=== PATIENT | male | born 1985 | race American Indian/Alaskan Native ===

== ENCOUNTER 2017-08-12 15:48 | Inpatient (IN) | payer OTHER ==
[2017-08-12] MEDS ORDERED: ATROVENT IH ONE ×2 (15:55→16:18)
[2017-08-12] MEDS ORDERED: PROVENTIL IH ONE ×4 (15:55→20:35)
[2017-08-12] MEDS: PROVENTIL IH ONE ×2 (16:00→17:04)
[2017-08-12] MEDS ORDERED: MAGNESIUM SULFATE 2GM/50ML 2 GM/50 ML BAG IV ONE (16:15)
[2017-08-12 16:43] LABS: Basophils % (Auto) 0.2 % (0.0-1.8); Eosinophils % (Auto) 0.7 % (0.0-4.3); Hematocrit 44.8 % (35.5-45.6); Hemoglobin 14.9 gm/dl (11.8-15.2); Mean Corpuscular HGB Conc 33 % (32-34); Mean Corpuscular Hemoglobin 31 pg (28-32); Mean Corpuscular Volume 92 fl (84-94); Platelet Count 192 K/mm3 (140-440); Red Blood Count 4.84 M/mm3 (3.65-5.03); Red Cell Distribution Width 13.8 % (13.2-15.2)
[2017-08-12] MEDS ORDERED: ATIVAN IV ONE (16:52)
--- NOTE | 2017-08-12 16:53 | Emergency Department Report ---
ED Asthma HPI - General Chief Complaint: Adult Asthma Stated Complaint: ASTHMA Time Seen by Provider: 08/12/17 16:13 Source: patient, family Mode of arrival: Ambulatory Limitations: No Limitations - History of Present Illness Initial Comments: 32-year-old male with past medical history of asthma and no intubations has presented to the ED complaining of asthma exacerbation. Patient states over the last day he has had worsening shortness of breath and difficulty breathing and wheezing. He states he ran out of his inhaler. Patient denies: fevers/ chills, cough, chest pain, abdominal pain, lower extremity edema, history of DVT /PE. MD Complaint: "asthma attack" -: Sudden Asthma History: childhood onset Severity: moderate Context: ran out of meds Associated Symptoms: denies: productive cough, dry cough, fever, chest pain, hemoptysis, leg edema, syncope Treatments Prior to Arrival: inhaled bronchodilator - Related Data Allergies Allergy/AdvReac Type Severity Reaction Status Date / Time No Known Allergies Allergy Unverified 08/12/17 16:00 ED Review of Systems ROS: Stated complaint: ASTHMA Other details as noted in HPI Constitutional: denies: chills, fever Eyes: denies: eye pain, eye discharge, vision change ENT: denies: ear pain, throat pain Respiratory: shortness of breath, SOB with exertion, SOB at rest, wheezing. denies: cough, orthopnea Cardiovascular: denies: chest pain, palpitations Endocrine: no symptoms reported Gastrointestinal: denies: abdominal pain, nausea, diarrhea Genitourinary: denies: urgency, dysuria Musculoskeletal: denies: back pain, joint swelling, arthralgia Skin: denies: rash, lesions Neurological: denies: headache, weakness, paresthesias Psychiatric: denies: anxiety, depression Hematological/Lymphatic: denies: easy bleeding, easy bruising ED Past Medical Hx - Past Medical History Previous Medical History?: Yes Hx Hypertension: No Hx CVA: No Hx Heart Attack/AMI: No Hx Congestive Heart Failure: No Hx Diabetes: No Hx Deep Vein Thrombosis: No Hx Pulmonary Embolism: No Hx GERD: No Hx Liver Disease: No Hx Renal Disease: No Hx of Cancer: No Hx Sickle Cell Disease: No Hx Arthritis: No Hx Headaches / Migraines: No Hx Seizures: No Hx Kidney Stones: No Hx Psychiatric Treatment: No Hx Asthma: Yes Hx COPD: No Hx Tuberculosis: No Hx Dementia: No Hx HIV: No - Surgical History Past Surgical History?: No Hx Coronary Stent: No Hx Open Heart Surgery: No Hx Pacemaker: No Hx Internal Defibrillator: No Hx Cholecystectomy: No Hx Appendectomy: No Hx Breast Surgery: No - Social History Smoking Status: Never Smoker Substance Use Type: None ED Physical Exam - General Limitations: No Limitations General appearance: alert, anxious, in distress - Head Head exam: Present: atraumatic, normocephalic - Eye Eye exam: Present: normal appearance, PERRL, EOMI - ENT ENT exam: Present: normal orophraynx, mucous membranes moist - Neck Neck exam: Present: normal inspection - Respiratory Respiratory exam: Present: respiratory distress (severe, pt not moving air ), accessory muscle use, decreased breath sounds, prolonged expiratory. Absent: wheezes, rales, rhonchi, stridor - Cardiovascular Cardiovascular Exam: Present: regular rate, normal rhythm. Absent: systolic murmur, diastolic murmur, rubs, gallop - GI/Abdominal GI/Abdominal exam: Present: soft, normal bowel sounds. Absent: distended, tenderness, guarding - Rectal Rectal exam: Present: deferred - Extremities Exam Extremities exam: Present: normal inspection - Back Exam Back exam: Present: normal inspection - Neurological Exam Neurological exam: Present: alert, oriented X3 - Psychiatric Psychiatric exam: Present: anxious - Skin Skin exam: Present: warm, dry, intact, normal color. Absent: rash ED Course Vital Signs 08/12/17 08/12/17 08/12/17 15:53 16:00 16:17 Temperature 97.4 F L Pulse Rate 129 H 119 H Pulse Rate [ 118 H Anterior Bilateral Throughout] Respiratory 18 22 Rate Respiratory 28 H Rate [Anterior Bilateral Throughout] Blood Pressure 120/78 Blood Pressure 120/78 [Right] O2 Sat by Pulse 84 98 Oximetry 08/12/17 08/12/17 08/12/17 16:25 16:30 16:46 Temperature Pulse Rate 118 H 112 H 114 H Pulse Rate [ Anterior Bilateral Throughout] Respiratory 30 H 31 H 25 H Rate Respiratory Rate [Anterior Bilateral Throughout] Blood Pressure 115/82 115/82 122/92 Blood Pressure [Right] O2 Sat by Pulse 100 100 100 Oximetry 08/12/17 08/12/17 08/12/17 17:00 17:02 17:04 Temperature Pulse Rate 127 H Pulse Rate [ 126 H 125 H Anterior Bilateral Throughout] Respiratory 37 H Rate Respiratory 26 H 28 H Rate [Anterior Bilateral Throughout] Blood Pressure 122/92 Blood Pressure [Right] O2 Sat by Pulse 95 Oximetry 08/12/17 08/12/17 08/12/17 17:16 17:30 17:46 Temperature Pulse Rate 136 H 89 Pulse Rate [ Anterior Bilateral Throughout] Respiratory 29 H 20 Rate Respiratory Rate [Anterior Bilateral Throughout] Blood Pressure 122/92 122/92 126/69 Blood Pressure [Right] O2 Sat by Pulse 100 100 100 Oximetry 08/12/17 08/12/17 08/12/17 18:00 18:15 18:18 Temperature Pulse Rate 136 H 122 H 113 H Pulse Rate [ Anterior Bilateral Throughout] Respiratory 8 L 18 Rate Respiratory Rate [Anterior Bilateral Throughout] Blood Pressure 149/82 138/85 164/131 Blood Pressure [Right] O2 Sat by Pulse 100 100 100 Oximetry 08/12/17 08/12/17 18:30 19:13 Temperature Pulse Rate 119 H Pulse Rate [ Anterior Bilateral Throughout] Respiratory 16 32 H Rate Respiratory Rate [Anterior Bilateral Throughout] Blood Pressure 147/87 Blood Pressure [Right] O2 Sat by Pulse 100 98 Oximetry - Reevaluation(s) Reevaluation #1: 08/12/17 16:53 Patient states he thinks he can breathe better on his own without BiPAP however he still has tachycardia, tachypnea and increased work of breathing. My suspicion is that he is anxious on the BiPAP therefore I have ordered Ativan. Reevaluation #2: 08/12/17 17:28 Patient's work of breathing worsened despite being on BiPAP and 2 continuous albuterol treatments and magnesium IV. Decision was made to intubate. Patient agreed. Patient tolerated intubation well. 08/12/17 18:45 Reevaluation #3: 08/12/17 18:46 Dr. Sherwood control systems drafting officer recommends ketamine drip. Reevaluation #4: 08/12/17 19:05 Dr. Sherwood states he will place ketamine orders in himself - Intubation Time Out Performed: Yes Sedative: Etomidate Paralytic: Succinylcholine Laryngoscope: Nhan Size: 4 ET Tube Size: 8 Tube Secured Depth (cm): 24 Tube Secured Location: teeth Tube Placement Confirmation: visualized tube passing t, equal breath sounds bilat, no breath sounds over epi Patient Tolerated Procedure: well Intubation Complications: none ED Medical Decision Making - Lab Data Result diagrams: 08/12/17 16:31 08/12/17 16:31 - EKG Data -: EKG Interpreted by Me EKG shows normal: sinus rhythm (141), axis (UPRIGHT), intervals (443) - EKG Data Interpretation: other (sinus tachycardia) - Radiology Data Radiology results: image reviewed interpreted by me: Chest x-ray #1: hyperventilation CXR #2 - tube is confirmed on CXR . - Medical Decision Making 32-year-old male presenting to the emergency department in respiratory distress 1) asthma exacerbation this caused severe respiratory distress and despite common interventions used patient did not tolerated well including BiPAP, therefore he was intubated secondary to sitting rest for status. His mother suspicion that patient symptoms are secondary to asthma. I low suspicion for: ACS as troponin was negative, EKG was sinus tachycardia. I will specific for PE is patient's d-dimer was negative, prior to patient patient states I have asthma attacks all the time this one is just really bad. I have also to Dr. Sherwood ICU who recommends ketamine drip. I called pharmacy to inquire about the drip however they are not aware of the protocol therefor I have made another page to Dr Sherwood for further Rec. Dr GARCIA has accepted the patient to his service. - Differential Diagnosis ACS, PNA, PE Critical Care Time: Yes (45) Critical care time in (mins) excluding proc time.: 45 Critical care attestation.: If time is entered above; I have spent that time in minutes in the direct care of this critically ill patient, excluding procedure time. Critical Care Time: 45 ED Disposition Clinical Impression: Asthma exacerbation, Respiratory failure Disposition: [id number] OP ADMIT IP TO THIS HOSP Is pt being admited?: Yes Does the pt Need Aspirin: No Condition: Stable Referrals: PRIMARY CARE,MD [Primary Care Provider] - 3-5 Days
[2017-08-12 17:01] LABS: BUN/Creatinine Ratio 10; Blood Urea Nitrogen 7 mg/dL (9-20); Carbon Dioxide 25 mmol/L (22-30); Glucose 115 mg/dL (75-100)
[2017-08-12 17:02] LABS: Anion Gap 18 mmol/L; Chloride 101.7 mmol/L (98-107); Potassium 3.8 mmol/L (3.6-5.0); Sodium 141 mmol/L (137-145)
[2017-08-12] MEDS ORDERED: NACL 0.9% 1000 ML 1,000 ML ONE ×2 (17:08→19:33)
[2017-08-12] MEDS ORDERED: VASELINE LIP THERAPY TP PRN (17:25)
[2017-08-12] MEDS ORDERED: ARTIFICIAL TEARS OPHTH OINT OU PRN (17:25)
[2017-08-12] MEDS ORDERED: DIPRIVAN 10 MG/ML 1,000 MG/100 ML BOTTLE IV ONE ×3 (17:30→21:59)
[2017-08-12] MEDS ORDERED: QUELICIN ONE (17:30)
[2017-08-12] MEDS ORDERED: AMIDATE IV ONE ×2 (17:30)
[2017-08-12] MEDS ORDERED: ZEMURON IV ONE ×2 (17:30→17:50)
[2017-08-12] MEDS ORDERED: QUELICIN IV ONE (17:31)
[2017-08-12] MEDS ORDERED: NACL 0.9% 500 ML IV SCH (18:00)
[2017-08-12] MEDS ORDERED: DIPRIVAN 10 MG/ML 1,000 MG/100 ML BOTTLE IV SCH (18:00)
[2017-08-12] MEDS: DIPRIVAN 10 MG/ML 1,000 MG/100 ML BOTTLE IV ONE (18:02)
--- NOTE | 2017-08-12 18:45 | History and Physical Report ---
History of Present Illness Chief complaint: I cant breathe History of present illness: 32 YO Male with Asthma presents to ED for evaluation. Pt states that he has experienced worsening shortness over the past day. Pt states that he ran out of his inhaler, and does not have a nebulizer. Pt is unable to speak in complete sentences, and is in severe distress. Pt seen and evaluated in ED and was intubated and placed on vent support. No reports of fever, chills, CP, Palpitations, productive cough, leg swelling/calf pain, DVT/PE, or recent ill contacts. Past History Past Medical History: other (asthma) Past Surgical History: No surgical history, Other (reviewed) Social history: single, lives with family. denies: smoking, alcohol abuse, prescription drug abuse Family history: hypertension, other (asthma) Medications and Allergies Allergies Allergy/AdvReac Type Severity Reaction Status Date / Time No Known Allergies Allergy Unverified 08/12/17 16:00 Active Meds: Active Medications Hydrophilic Ointment (Vaseline Lip Therapy) 1 applic TP Q2HR PRN PRN Reason: Dry Lips Propofol (Diprivan 10 Mg/Ml) 1,000 mg in 100 mls @ 2.04 mls/hr IV TITRATE CRUZ PRN Reason: 5 MCG/KG/MIN Propofol (Diprivan 10 Mg/Ml) 1,000 mg in 100 mls @ 2.04 mls/hr IV TITRATE ONE; 5 MCG/KG/MIN PRN Reason: Protocol Stop: 08/14/17 19:01 Last Admin: 08/12/17 18:02 Dose: 10 mcg/kg/min, 4.08 mls/hr Multi-Ingred Cream/Lotion/Oil/Oint (Artificial Tears Ophth Oint) 1 applic OU Q4HR PRN PRN Reason: Dry Eye(s) Sodium Chloride (Nacl 0.9% 500 Ml) 500 ml IV DIRECT [facility] Review of Systems Constitutional: no weight loss, no weight gain, no fever, no chills Ears, nose, mouth and throat: no ear pain, no ear discharge, no tinnitis, no decreased hearing, no nose pain, no nasal congestion, no nasal discharge, no sinus pressure Cardiovascular: shortness of breath, no chest pain, no orthopnea, no palpitations, no rapid/irregular heart beat, no edema Respiratory: shortness of breath, wheezing, no cough, no cough with sputum Gastrointestinal: no nausea, no vomiting, no diarrhea, no constipation, no change in bowel habits Genitourinary Male: no hematuria, no flank pain, no discharge, no urinary frequency, no urinary hesitancy Rectal: no pain, no incontinence, no bleeding Musculoskeletal: no neck pain, no shooting arm pain, no arm numbness/tingling, no low back pain, no shooting leg pain, no leg numbness/tingling Integumentary: no rash, no pruritis, no redness, no sores, no wounds, no jaundice Neurological: no head injury, no transient paralysis, no paralysis, no weakness , no parathesias, no numbness, no tingling, no seizures Psychiatric: no anxiety, no memory loss, no change in sleep habits, no sleep disturbances, no insomnia, no hypersomnia, no change in appetite Endocrine: no cold intolerance, no heat intolerance, no polyphagia, no excessive thirst, no polydipsia, no polyuria, no nocturia, no excessive sweating Hematologic/Lymphatic: no easy bruising, no easy bleeding Allergic/Immunologic: no urticaria, no allergic rhinitis, no wheezing Exam - Constitutional Vitals: Temp Pulse Resp BP Pulse Ox 97.4 F L 119 H 16 147/87 100 08/12/17 15:53 08/12/17 18:30 08/12/17 18:30 08/12/17 18:30 08/12/17 18:30 General appearance: Present: severe distress - EENT Eyes: Present: PERRL ENT: hearing intact, clear oral mucosa - Neck Neck: Present: supple, normal ROM - Respiratory Respiratory effort: labored, pursed lips, accessory muscle use, stridor Respiratory: bilateral: diminished - Cardiovascular Heart Sounds: Present: S1 & S2. Absent: rub, click - Extremities Extremities: pulses symmetrical, No edema Peripheral Pulses: within normal limits - Abdominal General gastrointestinal: Present: soft, non-tender, non-distended, normal bowel sounds Male genitourinary: Present: normal - Integumentary Integumentary: Present: clear, warm, dry - Musculoskeletal Musculoskeletal: gait normal, strength equal bilaterally - Psychiatric Psychiatric: appropriate mood/affect, intact judgment & insight Results - Labs CBC & Chem 7: 08/12/17 16:31 08/12/17 16:31 Labs: Abnormal lab results 08/12/17 08/12/17 Range/Units 16:31 16:31 WBC 13.0 H (4.5-11.0) K/mm3 Lymph % (Auto) 8.5 L (13.4-35.0) % Peach % (Auto) 8.1 H (0.0-7.3) % Lymph # 1.1 L (1.2-5.4) K/mm3 Peach # 1.1 H (0.0-0.8) K/mm3 Seg Neutrophils % 82.5 H (40.0-70.0) % Seg Neutrophils # 10.7 H (1.8-7.7) K/mm3 BUN 7 L (9-20) mg/dL Creatinine 0.7 L (0.8-1.5) mg/dL Glucose 115 H (75-100) mg/dL Assessment and Plan - Patient Problems (1) Respiratory failure Current Visit: Yes Status: Acute Qualifiers: Chronicity: C Respiratory failure complication: hypoxia Plan to address problem: Pulmonary consulted, IV steroids, Magnesium sulfate, nebs, Pt intubated on vent support, Daily SBT, wean vent as tolerated The high probability of a clinically significant, sudden or life threatening deterioration of the [Pulmonary, endocrine, cardiac] system(s) required my full and direct attention, intervention and personal management. The aggregate critical care time was [65] minutes. This time is in addition to time spent performing reported procedures but includes the following: [x] Data Review and interpretation [x] Patient assessment and monitoring of vital signs [x] Documentation [x] Medication orders and management (2) Asthma exacerbation Current Visit: Yes Status: Acute Qualifiers: Asthma severity: A Asthma persistence: A Plan to address problem: Nebulizer, supplemental oxygen, steroids,
[2017-08-12] MEDS ORDERED: PROVENTIL IH PRN (18:46)
[2017-08-12 19:07] LABS: ABG Base Excess -2.2 mmol/L (-2.0-3.0); ABG HCO3 26.7 mmol/L (20.0-26.0); ABG Oxygen Saturation 97.1 % (95.0-99.0); ABG PCO2 64.2 mm Hg; ABG PH 7.237 pH Units (7.350-7.450); ABG PO2 103.8 mm Hg (80.0-90.0)
--- NOTE | 2017-08-12 19:08 | XRay Report ---
FINAL REPORT EXAM: XR CHEST 1V AP HISTORY: Shortness of breath TECHNIQUE: AP portable view of the chest. PRIORS: None. FINDINGS: The cardiomediastinal silhouette appears normal. The lungs are clear. The bones and soft tissues are unremarkable. IMPRESSION: No evidence of acute cardiopulmonary disease.
--- NOTE | 2017-08-12 19:24 | XRay Report ---
FINAL REPORT EXAM: XR CHEST 1V AP HISTORY: ETT placement TECHNIQUE: AP portable view of the chest. PRIORS: 08/12/2017 at 21:07. FINDINGS: There is an endotracheal tube in place with the tip 4.5 cm above the bettina. The cardiomediastinal silhouette appears normal. The lungs are clear. The bones and soft tissues are unremarkable. IMPRESSION: No evidence of acute cardiopulmonary disease. The endotracheal tube appears adequately positioned.
[2017-08-12] MEDS: fentaNYL DRIP Premix 2,000 MCG/100 ML BAG IV SCH (20:10)
[2017-08-12] MEDS: DIPRIVAN 10 MG/ML 1,000 MG/100 ML BOTTLE IV SCH (22:00)
[2017-08-13] MEDS ORDERED: fentaNYL DRIP Premix 2,000 MCG/100 ML BAG IV ONE ×2 (01:42→09:22)
[2017-08-13] MEDS ORDERED: DIPRIVAN 10 MG/ML 1,000 MG/100 ML BOTTLE IV ONE ×3 (01:43→10:48)
[2017-08-13] MEDS: fentaNYL DRIP Premix 2,000 MCG/100 ML BAG IV SCH ×3 (01:55→22:22)
[2017-08-13] MEDS: DIPRIVAN 10 MG/ML 1,000 MG/100 ML BOTTLE IV SCH ×3 (01:58→20:00)
[2017-08-13 03:33] LABS: Hematocrit 43.4 % (35.5-45.6); Hemoglobin 14.5 gm/dl (11.8-15.2); Mean Corpuscular HGB Conc 34 % (32-34); Mean Corpuscular Hemoglobin 31 pg (28-32); Mean Corpuscular Volume 94 fl (84-94); Platelet Count 184 K/mm3 (140-440); Red Blood Count 4.63 M/mm3 (3.65-5.03); Red Cell Distribution Width 13.7 % (13.2-15.2); White Blood Count 12.7 K/mm3 (4.5-11.0)
[2017-08-13 04:14] LABS: Blastocytes % (Manual) 0 %
[2017-08-13 04:15] LABS: Burr Cells Few; Diff Status Complete; Platelet Estimate Consistent w Auto
[2017-08-13 04:40] LABS: ABG Base Excess -4.3 mmol/L (-2.0-3.0); ABG HCO3 23.5 mmol/L (20.0-26.0); ABG PCO2 53.9 mm Hg; ABG PH 7.257 pH Units (7.350-7.450); ABG PO2 99.2 mm Hg (80.0-90.0)
[2017-08-13] MEDS: DIPRIVAN 10 MG/ML 1,000 MG/100 ML BOTTLE IV ONE (08:05)
[2017-08-13] MEDS ORDERED: PROVENTIL IH ONE (08:24)
--- NOTE | 2017-08-13 09:10 | XRay Report ---
AP CHEST :08/12/17 07:57 CLINICAL: Intubated.Follow up respiratory failure. COMPARISON:The previous day. FINDINGS: The endotracheal tube is in satisfactory position. A nasogastric tube has been inserted and the tip is below the diaphragm. Normal heart and pulmonary vessels. Lungs are clear. No pneumothorax. IMPRESSION: Normal chest.
--- NOTE | 2017-08-13 13:40 | Progress Note ---
Assessment and Plan Assessment and plan: 32 years old male with asthma who ran out of his medications and admitted for severe respiratory distress that required intubation 1. Acute respiratory failure Secondary to asthma exacerbation Intubated on vent support Treatment underlying condition Pulmonary consulted 2. Asthma exacerbation Increase corticosteroids dose, add antibiotic, inhaled bronchodilators 3. Sepsis Suspected based on tachycardia/leukocytosis/asthma exacerbation Sputum culture ordered when intubated Obtain blood cultures, lactic acid Give IV fluids, antibiotic 4. ? Vomiting Place NGT to suction Head of bed elevation 5. Check UDS 6. DVT prophylaxis Lovenox cc 35 min History Interval history: intubated, sedated, but awakens ER nurse notices brownish secretion on his pillow, concern for vomiting Hospitalist Physical - Constitutional Vitals: Temp Pulse Resp BP Pulse Ox 97.4 F L 86 18 108/63 96 08/12/17 15:53 08/13/17 12:30 08/13/17 12:30 08/13/17 12:30 08/13/17 12:30 General appearance: Present: mild distress, well-nourished, other (intubated, sedated) - EENT Eyes: Present: PERRL, EOM intact. Absent: scleral icterus, conjunctival injection - Neck Neck: Present: supple. Absent: enlarged thyroid, masses or JVD - Respiratory Respiratory effort: other (intubated) Respiratory: bilateral: diminished, rhonchi, wheezing, negative: rales - Cardiovascular Rhythm: other (tachycardic) Heart Sounds: Present: S1 & S2. Absent: systolic murmur - Extremities Extremities: no ischemia - Abdominal General gastrointestinal: soft, non-tender, non-distended, normal bowel sounds, other (NGT) - Psychiatric Psychiatric: other (sedated) - Neurologic Neurologic: moves all extremities Results - Labs CBC & Chem 7: 08/13/17 02:54 08/12/17 16:31 Labs: Laboratory Last Values WBC 12.7 K/mm3 (4.5-11.0) H 08/13/17 02:54 RBC 4.63 M/mm3 (3.65-5.03) 08/13/17 02:54 Hgb 14.5 gm/dl (11.8-15.2) 08/13/17 02:54 Hct 43.4 % (35.5-45.6) 08/13/17 02:54 MCV 94 fl (84-94) 08/13/17 02:54 MCH 31 pg (28-32) 08/13/17 02:54 MCHC 34 % (32-34) 08/13/17 02:54 RDW 13.7 % (13.2-15.2) 08/13/17 02:54 Plt Count 184 K/mm3 (140-440) 08/13/17 02:54 Lymph % (Auto) 8.5 % (13.4-35.0) L 08/12/17 16:31 Dewitt % (Auto) 8.1 % (0.0-7.3) H 08/12/17 16:31 Eos % (Auto) 0.7 % (0.0-4.3) 08/12/17 16:31 Baso % (Auto) 0.2 % (0.0-1.8) 08/12/17 16:31 Lymph # 1.1 K/mm3 (1.2-5.4) L 08/12/17 16:31 Dewitt # 1.1 K/mm3 (0.0-0.8) H 08/12/17 16:31 Eos # 0.1 K/mm3 (0.0-0.4) 08/12/17 16:31 Baso # 0.0 K/mm3 (0.0-0.1) 08/12/17 16:31 Add Manual Diff Complete 08/13/17 02:54 Total Counted 100 08/13/17 02:54 Seg Neutrophils % Baseball Pitcher 08/13/17 02:54 Band Neutrophils % 1.0 % 08/13/17 02:54 Lymphocytes % (Manual) 2.0 % (13.4-35.0) L 08/13/17 02:54 Reactive Lymphs % (Man) 0 % 08/13/17 02:54 Monocytes % (Manual) 1.0 % (0.0-7.3) 08/13/17 02:54 Metamyelocytes % 0 % 08/13/17 02:54 Myelocytes % 0 % 08/13/17 02:54 Promyelocytes % 0 % 08/13/17 02:54 Blast Cells % 0 % 08/13/17 02:54 Nucleated RBC % Not Reportable 08/13/17 02:54 Seg Neutrophils # 10.7 K/mm3 (1.8-7.7) H 08/12/17 16:31 Seg Neutrophils # Man 12.2 K/mm3 (1.8-7.7) H 08/13/17 02:54 Band Neutrophils # 0.1 K/mm3 08/13/17 02:54 Lymphocytes # (Manual) 0.3 K/mm3 (1.2-5.4) L 08/13/17 02:54 Abs React Lymphs (Man) 0.0 K/mm3 08/13/17 02:54 Monocytes # (Manual) 0.1 K/mm3 (0.0-0.8) 08/13/17 02:54 Eosinophils # (Manual) 0.0 K/mm3 (0.0-0.4) 08/13/17 02:54 Basophils # (Manual) 0.0 K/mm3 (0.0-0.1) 08/13/17 02:54 Metamyelocytes # 0.0 K/mm3 08/13/17 02:54 Myelocytes # 0.0 K/mm3 08/13/17 02:54 Promyelocytes # 0.0 K/mm3 08/13/17 02:54 Blast Cells # 0.0 K/mm3 08/13/17 02:54 WBC Morphology Not Reportable 08/13/17 02:54 Hypersegmented Neuts Not Reportable 08/13/17 02:54 Hyposegmented Neuts Not Reportable 08/13/17 02:54 Hypogranular Neuts Not Reportable 08/13/17 02:54 Smudge Cells Not Reportable 08/13/17 02:54 Toxic Granulation Not Reportable 08/13/17 02:54 Toxic Vacuolation Not Reportable 08/13/17 02:54 Dohle Bodies Not Reportable 08/13/17 02:54 Pelger-Huet Anomaly Not Reportable 08/13/17 02:54 Hal Rods Not Reportable 08/13/17 02:54 Platelet Estimate Consistent w auto 08/13/17 02:54 Clumped Platelets Not Reportable 08/13/17 02:54 Plt Clumps, EDTA Not Reportable 08/13/17 02:54 Large Platelets Not Reportable 08/13/17 02:54 Giant Platelets Not Reportable 08/13/17 02:54 Platelet Satelliting Not Reportable 08/13/17 02:54 Plt Morphology Comment Not Reportable 08/13/17 02:54 RBC Morphology Not Reportable 08/13/17 02:54 Dimorphic RBCs Not Reportable 08/13/17 02:54 Polychromasia Not Reportable 08/13/17 02:54 Hypochromasia Not Reportable 08/13/17 02:54 Poikilocytosis Not Reportable 08/13/17 02:54 Anisocytosis Not Reportable 08/13/17 02:54 Microcytosis Not Reportable 08/13/17 02:54 Macrocytosis Not Reportable 08/13/17 02:54 Spherocytes Not Reportable 08/13/17 02:54 Pappenheimer Bodies Not Reportable 08/13/17 02:54 Sickle Cells Not Reportable 08/13/17 02:54 Target Cells Not Reportable 08/13/17 02:54 Tear Drop Cells Not Reportable 08/13/17 02:54 Ovalocytes Not Reportable 08/13/17 02:54 Helmet Cells Not Reportable 08/13/17 02:54 Norton-Muddy Bodies Not Reportable 08/13/17 02:54 [place] Rings Not Reportable 08/13/17 02:54 [place] Cells Few 08/13/17 02:54 Bite Cells Not Reportable 08/13/17 02:54 Crenated Cell Not Reportable 08/13/17 02:54 Elliptocytes Not Reportable 08/13/17 02:54 Acanthocytes (Spur) Not Reportable 08/13/17 02:54 Rouleaux Not Reportable 08/13/17 02:54 Hemoglobin C Crystals Not Reportable 08/13/17 02:54 Schistocytes Not Reportable 08/13/17 02:54 Malaria parasites Not Reportable 08/13/17 02:54 Gregorio Bodies Not Reportable 08/13/17 02:54 Hem Pathologist Commnt No 08/13/17 02:54 D-Dimer < 135.00 ng/mlDDU (0-234) 08/12/17 17:28 ABG pH 7.257 pH Units (7.350-7.450) L 08/13/17 04:00 ABG pCO2 53.9 mm Hg 08/13/17 04:00 ABG pO2 99.2 mm Hg (80.0-90.0) H 08/13/17 04:00 ABG HCO3 23.5 mmol/L (20.0-26.0) 08/13/17 04:00 ABG O2 Saturation 97.0 % (95.0-99.0) 08/13/17 04:00 ABG O2 Content 20.1 (0.0-44) 08/13/17 04:00 ABG Base Excess -4.3 mmol/L (-2.0-3.0) L 08/13/17 04:00 ABG Hemoglobin 14.9 gm/dl (14.0-18.0) 08/13/17 04:00 ABG Carboxyhemoglobin 1.4 % (0.0-5.0) 08/13/17 04:00 ABG Methemoglobin 0.5 % (0.0-1.5) 08/13/17 04:00 Oxyhemoglobin 95.2 % (95.0-99.0) 08/13/17 04:00 FiO2 50 % 08/13/17 04:00 Sodium 141 mmol/L (137-145) 08/12/17 16:31 Potassium 3.8 mmol/L (3.6-5.0) 08/12/17 16:31 Chloride 101.7 mmol/L (98-107) 08/12/17 16:31 Carbon Dioxide 25 mmol/L (22-30) 08/12/17 16:31 Anion Gap 18 mmol/L 08/12/17 16:31 BUN 7 mg/dL (9-20) L 08/12/17 16:31 Creatinine 0.7 mg/dL (0.8-1.5) L 08/12/17 16:31 Estimated GFR > 60 ml/min 08/12/17 16:31 BUN/Creatinine Ratio 10 % 08/12/17 16:31 Glucose 115 mg/dL (75-100) H 08/12/17 16:31 POC Glucose 105 (70-105) 08/13/17 10:09 Calcium 9.0 mg/dL (8.4-10.2) 08/12/17 16:31 Troponin T < 0.010 ng/mL (0.00-0.029) 08/12/17 16:31 - Imaging and Cardiology Chest x-ray: image reviewed
[2017-08-13] MEDS ORDERED: ATIVAN 100 MG in NACL 0.9% 50 ML, VIAFLEX EMPTY CONTAINER 0 ML IV SCH (14:00)
[2017-08-13 14:01] LABS: Urine Drugs of Abuse Note Disclamer
--- NOTE | 2017-08-13 14:25 | Consultation ---
History of Present Illness Consult date: 08/13/17 Requesting physician: ABILIO MORALES Reason for consult: asthma History of present illness: 32 y/o male, admitted with asthma exacerbation, failed bipap therapy and is now intubated. Past History Past Medical History: other (asthma) Past Surgical History: No surgical history, Other (reviewed) Social history: single, lives with family. denies: smoking, alcohol abuse, prescription drug abuse Family history: hypertension, other (asthma) Medications and Allergies Allergies Allergy/AdvReac Type Severity Reaction Status Date / Time No Known Allergies Allergy Unverified 08/12/17 16:00 Home Medications Medication Instructions Recorded Confirmed Last Taken Type Unobtainable 08/13/17 08/13/17 Unknown History Active Meds: Active Medications Albuterol (Proventil) 2.5 mg IH Q3HRT PRN PRN Reason: Shortness Of Breath Last Admin: 08/13/17 08:23 Dose: 2.5 mg Enoxaparin Sodium (Lovenox) 40 mg SUB-Q QDAY@2200 CRUZ Hydrophilic Ointment (Vaseline Lip Therapy) 1 applic TP Q2HR PRN PRN Reason: Dry Lips Propofol (Diprivan 10 Mg/Ml) 1,000 mg in 100 mls @ 2.04 mls/hr IV TITRATE CRUZ PRN Reason: 5 MCG/KG/MIN Last Infusion: 08/13/17 13:10 Dose: Infused Fentanyl Citrate (Fentanyl Drip Premix) 2,000 mcg in 100 mls @ 3.4 mls/hr IV TITR CRUZ; 1 MCG/KG/HR PRN Reason: Protocol Last Titration: 08/13/17 13:10 Dose: Infused Azithromycin 500 mg/ Sodium (Chloride) 250 mls @ 250 mls/hr IV Q24H CRUZ Sodium Chloride (Nacl 0.9% 1000 Ml) 1,000 mls @ 75 mls/hr IV DIRECT CRUZ Lorazepam 100 mg/ Sodium Chloride/ Miscellaneous Information 100 mls @ 1 mls/ hr IV TITR CRUZ; 1 MG/HR PRN Reason: Protocol Methylprednisolone Sodium Succinate (Solu-Medrol) 60 mg IV Q6HR CRUZ Multi-Ingred Cream/Lotion/Oil/Oint (Artificial Tears Ophth Oint) 1 applic OU Q4HR PRN PRN Reason: Dry Eye(s) Sodium Chloride (Nacl 0.9% 500 Ml) 500 ml IV DIRECT CRUZ Review of Systems ROS unobtainable: due to endotracheal tube, due to mental status Physical Examination Vital signs: Vital Signs Temp Pulse Resp BP Pulse Ox 97.4 F L 129 H 18 120/78 84 08/12/17 15:53 10 15:53 08/12/17 15:53 08/12/17 15:53 08/12/17 15:53 General appearance: no acute distress, asleep Eyes: non-icteric ENT: other (orally intubated and sedated on vent) Neck: supple Results - Laboratory Findings CBC and BMP: 08/13/17 02:54 08/12/17 16:31 ABG ABG pH 7.257 pH Units (7.350-7.450) L 08/13/17 04:00 ABG pCO2 53.9 mm Hg 08/13/17 04:00 ABG pO2 99.2 mm Hg (80.0-90.0) H 08/13/17 04:00 ABG O2 Saturation 97.0 % (95.0-99.0) 08/13/17 04:00 PT/INR, D-dimer D-Dimer < 135.00 ng/mlDDU (0-234) 08/12/17 17:28 Abnormal lab findings: Abnormal Labs 08/13/17 08/13/17 02:54 04:00 WBC 12.7 H Lymphocytes % (Manual) 2.0 L Seg Neutrophils # Man 12.2 H Lymphocytes # (Manual) 0.3 L ABG pH 7.257 L ABG pO2 99.2 H ABG Base Excess -4.3 L - Diagnostic Findings Chest x-ray: image reviewed (clear, no acute evidence of lung disease) Assessment and Plan 32 y/o male with acute respiratory failure secondary to asthma exacerbation from lack of therapy. 1. Increase steroids to to 60q6 2. Changes nebs to albuterol q4 scheduled 3. Ok with azithromycin but CXR is clear 4. May need heliox therapy 5. Added PRN ativan drip as well given that patient is easily awakend on Propofol and Fentanyl CCT 31 minutes.
[2017-08-13] MEDS ORDERED: ZITHROMAX 500 MG in NACL 0.9% 250ML 250 ML IV SCH (15:00)
[2017-08-13 15:08] LABS: ABG Base Excess 4.2 mmol/L (-2.0-3.0); ABG HCO3 29.9 mmol/L (20.0-26.0); ABG PCO2 48.6 mm Hg; ABG PH 7.407 pH Units (7.350-7.450); ABG PO2 85.6 mm Hg (80.0-90.0)
[2017-08-13] MEDS: NACL 0.9% 1000 ML 1,000 ML IV SCH (15:10)
[2017-08-13] MEDS: PROVENTIL IH SCH ×2 (16:51→19:15)
[2017-08-13] MEDS: LOVENOX SUB-Q SCH (21:32)
[2017-08-14] MEDS: DIPRIVAN 10 MG/ML 1,000 MG/100 ML BOTTLE IV SCH ×5 (01:07→17:51)
[2017-08-14] MEDS: PROVENTIL IH SCH ×6 (03:20→20:00)
[2017-08-14 04:19] LABS: Basophils % (Auto) 0.2 % (0.0-1.8); Hematocrit 41.4 % (35.5-45.6); Mean Corpuscular HGB Conc 34 % (32-34); Mean Corpuscular Hemoglobin 32 pg (28-32); Mean Corpuscular Volume 94 fl (84-94); Platelet Count 159 K/mm3 (140-440); Red Blood Count 4.42 M/mm3 (3.65-5.03); Red Cell Distribution Width 14.2 % (13.2-15.2); White Blood Count 12.8 K/mm3 (4.5-11.0)
[2017-08-14 04:34] LABS: Anion Gap 16 mmol/L; BUN/Creatinine Ratio 25; Blood Urea Nitrogen 15 mg/dL (9-20); Calcium 9.2 mg/dL (8.4-10.2); Carbon Dioxide 31 mmol/L (22-30); Glucose 137 mg/dL (75-100); Potassium 4.5 mmol/L (3.6-5.0); Sodium 142 mmol/L (137-145)
[2017-08-14 04:56] LABS: ABG Base Excess 6.7 mmol/L (-2.0-3.0); ABG Oxygen Saturation 95.6 % (95.0-99.0); ABG PCO2 48.1 mm Hg; ABG PH 7.441 pH Units (7.350-7.450); ABG PO2 70.8 mm Hg (80.0-90.0)
[2017-08-14] MEDS: fentaNYL DRIP Premix 2,000 MCG/100 ML BAG IV SCH ×3 (04:56→18:38)
[2017-08-14] MEDS: NACL 0.9% 1000 ML 1,000 ML IV SCH (04:56)
--- NOTE | 2017-08-14 07:23 | XRay Report ---
AP CHEST: HISTORY: Followup respiratory failure Lines and support devices remain in good position. Subtle air space opacity has developed in the left lower lobe behind the heart since yesterday's exam. The remainder of the lungs are clear. No pleural effusion or pneumothorax. Normal heart and mediastinal structures. IMPRESSION: Subtle air space opacity has developed in the left lower lobe behind the heart which could represent early infiltrate or atelectatic changes.
[2017-08-14] MEDS: PEPCID IV SCH ×2 (09:55→23:25)
--- NOTE | 2017-08-14 11:02 | Progress Note ---
Assessment and Plan Assessment and plan: 32 years old male with asthma who ran out of his medications and admitted for severe respiratory distress that required intubation 1. Acute respiratory failure Secondary to asthma exacerbation Failed BIPAP in ER, intubated on vent support now Treat underlying condition Pulmonary following and making adjustments 2. Asthma exacerbation Corticosteroids dose increased; continue antibiotic, inhaled bronchodilators 3. Suspected Sepsis Tachycardia/leukocytosis/asthma exacerbation Sputum/blood cultures obtained Lactic acid wnl Started on IV fluids, antibiotic 4. ? Vomiting NGT placed to suction Head of bed elevation 5. Drug abuse UDS positive for marijuana Will need counseling extubated 6. DVT prophylaxis Lovenox cc 32 min History Interval history: intubated, sedated plan for PSV Hospitalist Physical - Constitutional Vitals: Temp Pulse Resp BP Pulse Ox 98.2 F 55 L 19 101/55 94 08/14/17 08:00 08/14/17 07:51 08/14/17 06:21 08/14/17 07:51 08/14/17 07:51 General appearance: Present: no acute distress, well-nourished, other (intubated , sedated) - EENT Eyes: Present: PERRL, EOM intact - Neck Neck: Present: supple. Absent: enlarged thyroid, masses or JVD - Respiratory Respiratory effort: other (intubated) Respiratory: bilateral: diminished, wheezing, negative: rhonchi - Cardiovascular Rhythm: regular Heart Sounds: Present: S1 & S2. Absent: systolic murmur - Extremities Extremities: no ischemia, No edema - Abdominal General gastrointestinal: soft, non-tender, non-distended, normal bowel sounds, other (NGT) - Psychiatric Psychiatric: other (sedated) Results - Labs CBC & Chem 7: 08/14/17 03:55 08/14/17 03:55 Labs: Laboratory Last Values WBC 12.8 K/mm3 (4.5-11.0) H 08/14/17 03:55 RBC 4.42 M/mm3 (3.65-5.03) 08/14/17 03:55 Hgb 14.0 gm/dl (11.8-15.2) 08/14/17 03:55 Hct 41.4 % (35.5-45.6) 08/14/17 03:55 MCV 94 fl (84-94) 08/14/17 03:55 MCH 32 pg (28-32) 08/14/17 03:55 MCHC 34 % (32-34) 08/14/17 03:55 RDW 14.2 % (13.2-15.2) 08/14/17 03:55 Plt Count 159 K/mm3 (140-440) 08/14/17 03:55 Lymph % (Auto) 4.4 % (13.4-35.0) L 08/14/17 03:55 [place] % (Auto) 5.5 % (0.0-7.3) 08/14/17 03:55 Eos % (Auto) 0.0 % (0.0-4.3) 08/14/17 03:55 Baso % (Auto) 0.2 % (0.0-1.8) 08/14/17 03:55 Lymph # 0.6 K/mm3 (1.2-5.4) L 08/14/17 03:55 [place] # 0.7 K/mm3 (0.0-0.8) 08/14/17 03:55 Eos # 0.0 K/mm3 (0.0-0.4) 08/14/17 03:55 Baso # 0.0 K/mm3 (0.0-0.1) 08/14/17 03:55 Add Manual Diff Complete 08/13/17 02:54 Total Counted 100 08/13/17 02:54 Seg Neutrophils % 89.9 % (40.0-70.0) H 08/14/17 03:55 Band Neutrophils % 1.0 % 08/13/17 02:54 Lymphocytes % (Manual) 2.0 % (13.4-35.0) L 08/13/17 02:54 Reactive Lymphs % (Man) 0 % 08/13/17 02:54 Monocytes % (Manual) 1.0 % (0.0-7.3) 08/13/17 02:54 Metamyelocytes % 0 % 08/13/17 02:54 Myelocytes % 0 % 08/13/17 02:54 Promyelocytes % 0 % 08/13/17 02:54 Blast Cells % 0 % 08/13/17 02:54 Nucleated RBC % Not Reportable 08/13/17 02:54 Seg Neutrophils # 11.5 K/mm3 (1.8-7.7) H 08/14/17 03:55 Seg Neutrophils # Man 12.2 K/mm3 (1.8-7.7) H 08/13/17 02:54 Band Neutrophils # 0.1 K/mm3 08/13/17 02:54 Lymphocytes # (Manual) 0.3 K/mm3 (1.2-5.4) L 08/13/17 02:54 Abs React Lymphs (Man) 0.0 K/mm3 08/13/17 02:54 Monocytes # (Manual) 0.1 K/mm3 (0.0-0.8) 08/13/17 02:54 Eosinophils # (Manual) 0.0 K/mm3 (0.0-0.4) 08/13/17 02:54 Basophils # (Manual) 0.0 K/mm3 (0.0-0.1) 08/13/17 02:54 Metamyelocytes # 0.0 K/mm3 08/13/17 02:54 Myelocytes # 0.0 K/mm3 08/13/17 02:54 Promyelocytes # 0.0 K/mm3 08/13/17 02:54 Blast Cells # 0.0 K/mm3 08/13/17 02:54 WBC Morphology Not Reportable 08/13/17 02:54 Hypersegmented Neuts Not Reportable 08/13/17 02:54 Hyposegmented Neuts Not Reportable 08/13/17 02:54 Hypogranular Neuts Not Reportable 08/13/17 02:54 Smudge Cells Not Reportable 08/13/17 02:54 Toxic Granulation Not Reportable 08/13/17 02:54 Toxic Vacuolation Not Reportable 08/13/17 02:54 Dohle Bodies Not Reportable 08/13/17 02:54 Pelger-Huet Anomaly Not Reportable 08/13/17 02:54 Hal Rods Not Reportable 08/13/17 02:54 Platelet Estimate Consistent w auto 08/13/17 02:54 Clumped Platelets Not Reportable 08/13/17 02:54 Plt Clumps, EDTA Not Reportable 08/13/17 02:54 Large Platelets Not Reportable 08/13/17 02:54 Giant Platelets Not Reportable 08/13/17 02:54 Platelet Satelliting Not Reportable 08/13/17 02:54 Plt Morphology Comment Not Reportable 08/13/17 02:54 RBC Morphology Not Reportable 08/13/17 02:54 Dimorphic RBCs Not Reportable 08/13/17 02:54 Polychromasia Not Reportable 08/13/17 02:54 Hypochromasia Not Reportable 08/13/17 02:54 Poikilocytosis Not Reportable 08/13/17 02:54 Anisocytosis Not Reportable 08/13/17 02:54 Microcytosis Not Reportable 08/13/17 02:54 Macrocytosis Not Reportable 08/13/17 02:54 Spherocytes Not Reportable 08/13/17 02:54 Pappenheimer Bodies Not Reportable 08/13/17 02:54 Sickle Cells Not Reportable 08/13/17 02:54 Target Cells Not Reportable 08/13/17 02:54 Tear Drop Cells Not Reportable 08/13/17 02:54 Ovalocytes Not Reportable 08/13/17 02:54 Helmet Cells Not Reportable 08/13/17 02:54 [place] Bodies Not Reportable 08/13/17 02:54 [place] Rings Not Reportable 08/13/17 02:54 [place] Cells Few 08/13/17 02:54 Bite Cells Not Reportable 08/13/17 02:54 Crenated Cell Not Reportable 08/13/17 02:54 Elliptocytes Not Reportable 08/13/17 02:54 Acanthocytes (Spur) Not Reportable 08/13/17 02:54 Rouleaux Not Reportable 08/13/17 02:54 Hemoglobin C Crystals Not Reportable 08/13/17 02:54 Schistocytes Not Reportable 08/13/17 02:54 Malaria parasites Not Reportable 08/13/17 02:54 [place]orio Bodies Not Reportable 08/13/17 02:54 Hem Pathologist Commnt No 08/13/17 02:54 D-Dimer < 135.00 ng/mlDDU (0-234) 08/12/17 17:28 ABG pH 7.441 pH Units (7.350-7.450) 08/14/17 04:36 ABG pCO2 48.1 mm Hg 08/14/17 04:36 ABG pO2 70.8 mm Hg (80.0-90.0) L 08/14/17 04:36 ABG HCO3 32.0 mmol/L (20.0-26.0) H 08/14/17 04:36 ABG O2 Saturation 95.6 % (95.0-99.0) 08/14/17 04:36 ABG O2 Content 18.5 (0.0-44) 08/14/17 04:36 ABG Base Excess 6.7 mmol/L (-2.0-3.0) H 08/14/17 04:36 ABG Hemoglobin 14.0 gm/dl (14.0-18.0) 08/14/17 04:36 ABG Carboxyhemoglobin 1.4 % (0.0-5.0) 08/14/17 04:36 ABG Methemoglobin 0.3 % (0.0-1.5) 08/14/17 04:36 Oxyhemoglobin 94.0 % (95.0-99.0) L 08/14/17 04:36 FiO2 50 % 08/14/17 04:36 Sodium 142 mmol/L (137-145) 08/14/17 03:55 Potassium 4.5 mmol/L (3.6-5.0) 08/14/17 03:55 Chloride 100.0 mmol/L (98-107) 08/14/17 03:55 Carbon Dioxide 31 mmol/L (22-30) H 08/14/17 03:55 Anion Gap 16 mmol/L 08/14/17 03:55 BUN 15 mg/dL (9-20) 08/14/17 03:55 Creatinine 0.6 mg/dL (0.8-1.5) L 08/14/17 03:55 Estimated GFR > 60 ml/min 08/14/17 03:55 BUN/Creatinine Ratio 25 % 08/14/17 03:55 Glucose 137 mg/dL (75-100) H 08/14/17 03:55 POC Glucose 105 (70-105) 08/13/17 10:09 Lactic Acid 1.40 mmol/L (0.7-2.0) 08/13/17 14:25 Calcium 9.2 mg/dL (8.4-10.2) 08/14/17 03:55 Troponin T < 0.010 ng/mL (0.00-0.029) 08/12/17 16:31 Urine Opiates Screen Presumptive negative 08/13/17 13:50 Urine Methadone Screen Presumptive negative 08/13/17 13:50 Ur Barbiturates Screen Presumptive negative 08/13/17 13:50 Ur Phencyclidine Scrn Presumptive negative 08/13/17 13:50 Ur Amphetamines Screen Presumptive negative 08/13/17 13:50 U Benzodiazepines Scrn Presumptive negative 08/13/17 13:50 Urine Cocaine Screen Presumptive negative 08/13/17 13:50 U Marijuana (THC) Screen Presumptive positive 08/13/17 13:50 Drugs of Abuse Note Disclamer 08/13/17 13:50
--- NOTE | 2017-08-14 14:24 | Progress Note ---
Assessment and Plan 32 y/o male with acute respiratory failure secondary to asthma exacerbation from lack of therapy. 1. Continue steroids at 60q6 2. Changes nebs to albuterol q4 scheduled, continue for now. Will add BID Pulmicort 3. Stop azithromycin 4. May need heliox therapy 5. Added PRN ativan drip as well given that patient is easily awakend on Propofol and Fentanyl CCT 31 minutes. Subjective Date of service: 08/14/17 Interval history: No acute events. Sedated on vent but arousable Objective Vital Signs - 12hr 08/14/17 08/14/17 08/14/17 02:21 02:30 02:41 Temperature Pulse Rate 55 L 67 69 Pulse Rate [ Anterior Bilateral Throughout] Respiratory 18 18 18 Rate Respiratory Rate [Anterior Bilateral Throughout] Blood Pressure 103/62 113/73 113/73 O2 Sat by Pulse 97 100 99 Oximetry 08/14/17 08/14/17 08/14/17 02:51 03:01 03:06 Temperature 97.8 F Pulse Rate 76 84 Pulse Rate [ Anterior Bilateral Throughout] Respiratory 15 18 Rate Respiratory Rate [Anterior Bilateral Throughout] Blood Pressure 113/73 108/72 O2 Sat by Pulse 100 99 Oximetry 08/14/17 08/14/17 08/14/17 03:11 03:21 03:31 Temperature Pulse Rate 72 58 L 54 L Pulse Rate [ Anterior Bilateral Throughout] Respiratory 18 18 18 Rate Respiratory Rate [Anterior Bilateral Throughout] Blood Pressure 108/72 108/72 108/72 O2 Sat by Pulse 98 97 97 Oximetry 08/14/17 08/14/17 08/14/17 03:41 03:51 04:00 Temperature Pulse Rate 54 L 59 L 57 L Pulse Rate [ Anterior Bilateral Throughout] Respiratory 18 18 18 Rate Respiratory Rate [Anterior Bilateral Throughout] Blood Pressure 108/72 107/64 107/64 O2 Sat by Pulse 98 97 98 Oximetry 08/14/17 08/14/17 08/14/17 04:11 04:21 04:22 Temperature Pulse Rate 57 L 62 Pulse Rate [ 62 Anterior Bilateral Throughout] Respiratory 18 18 Rate Respiratory 18 Rate [Anterior Bilateral Throughout] Blood Pressure 107/64 107/64 O2 Sat by Pulse 97 95 Oximetry 08/14/17 08/14/17 08/14/17 04:30 04:41 04:51 Temperature Pulse Rate 66 67 68 Pulse Rate [ Anterior Bilateral Throughout] Respiratory 18 18 18 Rate Respiratory Rate [Anterior Bilateral Throughout] Blood Pressure 105/64 105/64 105/64 O2 Sat by Pulse 98 96 94 Oximetry 08/14/17 08/14/17 08/14/17 05:00 05:11 05:21 Temperature Pulse Rate 65 66 Pulse Rate [ Anterior Bilateral Throughout] Respiratory 18 18 Rate Respiratory Rate [Anterior Bilateral Throughout] Blood Pressure 108/62 108/62 108/62 O2 Sat by Pulse 97 96 97 Oximetry 08/14/17 08/14/17 08/14/17 05:30 05:41 05:51 Temperature Pulse Rate 63 78 63 Pulse Rate [ Anterior Bilateral Throughout] Respiratory 18 21 20 Rate Respiratory Rate [Anterior Bilateral Throughout] Blood Pressure 120/71 120/71 120/71 O2 Sat by Pulse 99 98 95 Oximetry 08/14/17 08/14/17 08/14/17 06:00 06:11 06:21 Temperature Pulse Rate 64 63 59 L Pulse Rate [ Anterior Bilateral Throughout] Respiratory 18 20 19 Rate Respiratory Rate [Anterior Bilateral Throughout] Blood Pressure 111/59 111/59 111/59 O2 Sat by Pulse 93 94 99 Oximetry 08/14/17 08/14/17 08/14/17 07:51 08:00 12:00 Temperature 98.2 F 99.0 F Pulse Rate 55 L 67 Pulse Rate [ Anterior Bilateral Throughout] Respiratory Rate Respiratory Rate [Anterior Bilateral Throughout] Blood Pressure 101/55 108/62 O2 Sat by Pulse 94 95 Oximetry Constitutional: no acute distress, asleep Eyes: non-icteric ENT: other (orally intubated and sedated on vent) Neck: supple CBC and BMP: 08/14/17 03:55 08/14/17 03:55 ABG, PT/INR, D-dimer: ABG ABG pH 7.441 pH Units (7.350-7.450) 08/14/17 04:36 ABG pCO2 48.1 mm Hg 08/14/17 04:36 ABG pO2 70.8 mm Hg (80.0-90.0) L 08/14/17 04:36 ABG O2 Saturation 95.6 % (95.0-99.0) 08/14/17 04:36 PT/INR, D-dimer D-Dimer < 135.00 ng/mlDDU (0-234) 08/12/17 17:28 Abnormal lab findings: Abnormal Labs 08/13/17 08/13/17 08/13/17 02:54 04:00 14:40 WBC 12.7 H Lymph % (Auto) Lymph # Seg Neutrophils % Lymphocytes % (Manual) 2.0 L Seg Neutrophils # Seg Neutrophils # Man 12.2 H Lymphocytes # (Manual) 0.3 L ABG pH 7.257 L ABG pO2 99.2 H ABG HCO3 29.9 H ABG Base Excess -4.3 L 4.2 H Oxyhemoglobin Carbon Dioxide Creatinine Glucose 08/14/17 08/14/17 08/14/17 03:55 03:55 04:36 WBC 12.8 H Lymph % (Auto) 4.4 L Lymph # 0.6 L Seg Neutrophils % 89.9 H Lymphocytes % (Manual) Seg Neutrophils # 11.5 H Seg Neutrophils # Man Lymphocytes # (Manual) ABG pH ABG pO2 70.8 L ABG HCO3 32.0 H ABG Base Excess 6.7 H Oxyhemoglobin 94.0 L Carbon Dioxide 31 H Creatinine 0.6 L Glucose 137 H
[2017-08-14] MEDS: PULMICORT IH SCH ×2 (17:36→20:00)
[2017-08-14 21:16] LABS: ABG Base Excess 4.8 mmol/L (-2.0-3.0); ABG HCO3 29.6 mmol/L (20.0-26.0); ABG Oxygen Saturation 98.7 % (95.0-99.0); ABG PCO2 44.1 mm Hg; ABG PH 7.444 pH Units (7.350-7.450); ABG PO2 137.8 mm Hg (80.0-90.0)
--- NOTE | 2017-08-14 23:06 | Progress Note ---
Subjective Interval history: pt self extubated, placed on 100% nrb. At first agitated. 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 Presently more awake and appropriate. No evidence of stridor tinimal wheezing noted. will wean fio2 astolerated. Abg noted monitor for evidence of DT. ciwa protocol ( pt drinks at least 3 to 5 beers per day) Continue on meds spoke with family re condition additional time 25 mins Objective Vital Signs - 12hr 08/14/17 08/14/17 08/14/17 11:00 11:11 11:21 Temperature Pulse Rate 54 L 52 L 52 L Pulse Rate [ Anterior Bilateral Throughout] Respiratory 18 18 18 Rate Respiratory Rate [Anterior Bilateral Throughout] Blood Pressure 105/58 105/58 105/58 O2 Sat by Pulse 95 96 96 Oximetry 08/14/17 08/14/17 08/14/17 11:30 11:41 11:51 Temperature Pulse Rate 54 L 65 61 Pulse Rate [ Anterior Bilateral Throughout] Respiratory 18 17 18 Rate Respiratory Rate [Anterior Bilateral Throughout] Blood Pressure 108/61 108/61 108/61 O2 Sat by Pulse 97 96 99 Oximetry 08/14/17 08/14/17 08/14/17 12:00 12:11 12:21 Temperature 99.0 F Pulse Rate 57 L 74 91 H Pulse Rate [ Anterior Bilateral Throughout] Respiratory 18 21 16 Rate Respiratory Rate [Anterior Bilateral Throughout] Blood Pressure 114/62 114/62 114/62 O2 Sat by Pulse 99 99 92 Oximetry 08/14/17 08/14/17 08/14/17 12:30 12:41 12:51 Temperature Pulse Rate 67 63 61 Pulse Rate [ Anterior Bilateral Throughout] Respiratory 18 18 18 Rate Respiratory Rate [Anterior Bilateral Throughout] Blood Pressure 109/62 109/62 109/62 O2 Sat by Pulse 96 96 96 Oximetry 08/14/17 08/14/17 08/14/17 13:00 13:11 13:21 Temperature Pulse Rate 60 64 59 L Pulse Rate [ Anterior Bilateral Throughout] Respiratory 18 18 18 Rate Respiratory Rate [Anterior Bilateral Throughout] Blood Pressure 108/62 108/62 108/62 O2 Sat by Pulse 96 95 96 Oximetry 08/14/17 08/14/17 08/14/17 13:30 13:41 13:51 Temperature Pulse Rate 66 57 L 54 L Pulse Rate [ Anterior Bilateral Throughout] Respiratory 18 18 18 Rate Respiratory Rate [Anterior Bilateral Throughout] Blood Pressure 105/60 105/60 105/60 O2 Sat by Pulse 96 97 98 Oximetry 08/14/17 08/14/17 08/14/17 14:00 14:11 14:21 Temperature Pulse Rate 54 L 55 L 56 L Pulse Rate [ Anterior Bilateral Throughout] Respiratory 18 18 18 Rate Respiratory Rate [Anterior Bilateral Throughout] Blood Pressure 107/61 107/61 107/61 O2 Sat by Pulse 98 97 97 Oximetry 08/14/17 08/14/17 08/14/17 14:30 14:41 14:51 Temperature Pulse Rate 56 L 84 83 Pulse Rate [ Anterior Bilateral Throughout] Respiratory 18 18 18 Rate Respiratory Rate [Anterior Bilateral Throughout] Blood Pressure 115/64 107/61 107/61 O2 Sat by Pulse 97 98 95 Oximetry 08/14/17 08/14/17 08/14/17 15:00 15:11 15:21 Temperature Pulse Rate 73 65 91 H Pulse Rate [ Anterior Bilateral Throughout] Respiratory 18 18 20 Rate Respiratory Rate [Anterior Bilateral Throughout] Blood Pressure 117/63 117/63 117/63 O2 Sat by Pulse 96 94 94 Oximetry 08/14/17 08/14/17 08/14/17 15:30 15:41 15:51 Temperature Pulse Rate 71 70 67 Pulse Rate [ Anterior Bilateral Throughout] Respiratory 18 18 18 Rate Respiratory Rate [Anterior Bilateral Throughout] Blood Pressure 105/55 117/63 117/63 O2 Sat by Pulse 91 92 93 Oximetry 08/14/17 08/14/17 08/14/17 16:00 16:11 16:21 Temperature 98.7 F Pulse Rate 56 L 60 53 L Pulse Rate [ Anterior Bilateral Throughout] Respiratory 18 18 18 Rate Respiratory Rate [Anterior Bilateral Throughout] Blood Pressure 108/62 108/57 108/57 O2 Sat by Pulse 99 96 98 Oximetry 08/14/17 08/14/17 08/14/17 16:30 16:41 16:51 Temperature Pulse Rate 59 L 63 61 Pulse Rate [ Anterior Bilateral Throughout] Respiratory 18 18 18 Rate Respiratory Rate [Anterior Bilateral Throughout] Blood Pressure 110/63 108/57 108/57 O2 Sat by Pulse 99 96 96 Oximetry 08/14/17 08/14/17 08/14/17 17:00 17:11 17:21 Temperature Pulse Rate 69 64 60 Pulse Rate [ Anterior Bilateral Throughout] Respiratory 18 18 18 Rate Respiratory Rate [Anterior Bilateral Throughout] Blood Pressure 109/62 109/62 109/62 O2 Sat by Pulse 99 99 99 Oximetry 08/14/17 08/14/17 08/14/17 17:30 17:41 17:51 Temperature Pulse Rate 99 H 90 90 Pulse Rate [ Anterior Bilateral Throughout] Respiratory 16 18 18 Rate Respiratory Rate [Anterior Bilateral Throughout] Blood Pressure 101/62 101/62 101/62 O2 Sat by Pulse 98 100 95 Oximetry 08/14/17 08/14/17 08/14/17 18:01 18:11 18:20 Temperature Pulse Rate 95 H 90 97 H Pulse Rate [ Anterior Bilateral Throughout] Respiratory 18 18 18 Rate Respiratory Rate [Anterior Bilateral Throughout] Blood Pressure 101/62 101/62 O2 Sat by Pulse 92 91 94 Oximetry 08/14/17 08/14/17 08/14/17 18:30 18:40 18:50 Temperature Pulse Rate 93 H 80 79 Pulse Rate [ Anterior Bilateral Throughout] Respiratory 18 18 18 Rate Respiratory Rate [Anterior Bilateral Throughout] Blood Pressure 118/69 118/69 110/64 O2 Sat by Pulse 93 94 94 Oximetry 08/14/17 08/14/17 08/14/17 19:00 19:10 19:20 Temperature Pulse Rate 104 H 87 79 Pulse Rate [ Anterior Bilateral Throughout] Respiratory 19 17 18 Rate Respiratory Rate [Anterior Bilateral Throughout] Blood Pressure 116/73 116/73 116/73 O2 Sat by Pulse 98 95 93 Oximetry 08/14/17 08/14/17 08/14/17 19:30 19:33 19:40 Temperature 98.6 F Pulse Rate 73 110 H Pulse Rate [ Anterior Bilateral Throughout] Respiratory 18 13 Rate Respiratory Rate [Anterior Bilateral Throughout] Blood Pressure 115/67 115/67 O2 Sat by Pulse 95 95 Oximetry 08/14/17 08/14/17 08/14/17 19:50 20:00 20:06 Temperature Pulse Rate 74 75 84 Pulse Rate [ 84 Anterior Bilateral Throughout] Respiratory 18 17 Rate Respiratory 18 Rate [Anterior Bilateral Throughout] Blood Pressure 116/73 126/68 126/68 O2 Sat by Pulse 95 98 95 Oximetry 08/14/17 08/14/17 08/14/17 20:10 20:15 20:20 Temperature Pulse Rate 107 H 128 H Pulse Rate [ 86 Anterior Bilateral Throughout] Respiratory 26 H 16 Rate Respiratory 18 Rate [Anterior Bilateral Throughout] Blood Pressure 126/68 126/68 O2 Sat by Pulse 95 90 Oximetry 08/14/17 08/14/17 08/14/17 20:25 20:30 20:40 Temperature Pulse Rate 95 H 118 H 119 H Pulse Rate [ Anterior Bilateral Throughout] Respiratory 28 H 21 19 Rate Respiratory Rate [Anterior Bilateral Throughout] Blood Pressure 126/68 129/63 O2 Sat by Pulse 100 100 93 Oximetry 08/14/17 08/14/17 08/14/17 20:50 21:00 21:10 Temperature Pulse Rate 106 H 67 97 H Pulse Rate [ Anterior Bilateral Throughout] Respiratory 15 14 15 Rate Respiratory Rate [Anterior Bilateral Throughout] Blood Pressure 129/63 129/63 129/63 O2 Sat by Pulse 100 100 100 Oximetry 08/14/17 08/14/17 08/14/17 21:20 21:30 21:38 Temperature Pulse Rate 94 H 90 Pulse Rate [ Anterior Bilateral Throughout] Respiratory 18 18 Rate Respiratory Rate [Anterior Bilateral Throughout] Blood Pressure 129/63 116/59 O2 Sat by Pulse 90 93 92 Oximetry 08/14/17 08/14/17 08/14/17 21:40 21:50 22:00 Temperature Pulse Rate 83 75 95 H Pulse Rate [ Anterior Bilateral Throughout] Respiratory 17 14 17 Rate Respiratory Rate [Anterior Bilateral Throughout] Blood Pressure 116/59 116/59 106/50 O2 Sat by Pulse 94 95 94 Oximetry 08/14/17 08/14/17 08/14/17 22:10 22:20 22:30 Temperature Pulse Rate 76 73 78 Pulse Rate [ Anterior Bilateral Throughout] Respiratory 19 16 19 Rate Respiratory Rate [Anterior Bilateral Throughout] Blood Pressure 106/50 106/50 103/48 O2 Sat by Pulse 94 94 94 Oximetry 08/14/17 22:40 Temperature Pulse Rate 75 Pulse Rate [ Anterior Bilateral Throughout] Respiratory 18 Rate Respiratory Rate [Anterior Bilateral Throughout] Blood Pressure 103/48 O2 Sat by Pulse 94 Oximetry Constitutional: no acute distress, asleep Eyes: non-icteric ENT: other (orally intubated and sedated on vent) Neck: supple CBC and BMP: 08/14/17 03:55 08/14/17 03:55 ABG, PT/INR, D-dimer: ABG ABG pH 7.444 pH Units (7.350-7.450) 08/14/17 20:54 ABG pCO2 44.1 mm Hg 08/14/17 20:54 ABG pO2 137.8 mm Hg (80.0-90.0) H 08/14/17 20:54 ABG O2 Saturation 98.7 % (95.0-99.0) 08/14/17 20:54 PT/INR, D-dimer D-Dimer < 135.00 ng/mlDDU (0-234) 08/12/17 17:28 Abnormal lab findings: Abnormal Labs 08/13/17 08/13/17 08/13/17 02:54 04:00 14:40 WBC 12.7 H Lymph % (Auto) Lymph # Seg Neutrophils % Lymphocytes % (Manual) 2.0 L Seg Neutrophils # Seg Neutrophils # Man 12.2 H Lymphocytes # (Manual) 0.3 L ABG pH 7.257 L ABG pO2 99.2 H ABG HCO3 29.9 H ABG Base Excess -4.3 L 4.2 H Oxyhemoglobin Carbon Dioxide Creatinine Glucose 08/14/17 08/14/17 08/14/17 03:55 03:55 04:36 WBC 12.8 H Lymph % (Auto) 4.4 L Lymph # 0.6 L Seg Neutrophils % 89.9 H Lymphocytes % (Manual) Seg Neutrophils # 11.5 H Seg Neutrophils # Man Lymphocytes # (Manual) ABG pH ABG pO2 70.8 L ABG HCO3 32.0 H ABG Base Excess 6.7 H Oxyhemoglobin 94.0 L Carbon Dioxide 31 H Creatinine 0.6 L Glucose 137 H 08/14/17 20:54 WBC Lymph % (Auto) Lymph # Seg Neutrophils % Lymphocytes % (Manual) Seg Neutrophils # Seg Neutrophils # Man Lymphocytes # (Manual) ABG pH ABG pO2 137.8 H ABG HCO3 29.6 H ABG Base Excess 4.8 H Oxyhemoglobin Carbon Dioxide Creatinine Glucose
[2017-08-14] MEDS ORDERED: HALDOL IV PRN (23:14)
[2017-08-14] MEDS ORDERED: ATIVAN IV PRN ×3 (23:14)
[2017-08-14] MEDS: LOVENOX SUB-Q SCH (23:25)
[2017-08-15] MEDS: PROVENTIL IH SCH ×3 (00:07→07:40)
--- NOTE | 2017-08-15 07:31 | XRay Report ---
AP CHEST: HISTORY: Followup respiratory failure The endotracheal tube and nasogastric tube have been removed since yesterday's exam. Subtle infiltration at the left lung base has nearly resolved. The lungs are generally clear. Normal heart and mediastinal structures. IMPRESSION: Unremarkable AP chest.
[2017-08-15] MEDS: PULMICORT IH SCH ×2 (07:40→19:48)
--- NOTE | 2017-08-15 09:57 | Progress Note ---
Assessment and Plan 32 y/o male with acute respiratory failure secondary to asthma exacerbation from lack of therapy. 1. Change steroids to 40q8 2. Continue Pulmicort, add Brovana BID and change albuterol to [id number] PRN 3. Stable for transfer to floor 4. May need heliox therapy if bronchospasm becomes severe Subjective Date of service: 08/15/17 Interval history: Self extubated last night. Stable. Objective Vital Signs - 12hr 08/14/17 08/14/17 08/14/17 22:00 22:10 22:20 Temperature Pulse Rate 95 H 76 73 Pulse Rate [ Anterior Bilateral Throughout] Respiratory 17 19 16 Rate Respiratory Rate [Anterior Bilateral Throughout] Blood Pressure 106/50 106/50 106/50 O2 Sat by Pulse 94 94 94 Oximetry 08/14/17 08/14/17 08/14/17 22:30 22:40 22:50 Temperature Pulse Rate 78 75 81 Pulse Rate [ Anterior Bilateral Throughout] Respiratory 19 18 18 Rate Respiratory Rate [Anterior Bilateral Throughout] Blood Pressure 103/48 103/48 106/50 O2 Sat by Pulse 94 94 94 Oximetry 08/14/17 08/14/17 08/14/17 23:00 23:08 23:10 Temperature 99.1 F Pulse Rate 73 72 Pulse Rate [ Anterior Bilateral Throughout] Respiratory 17 18 Rate Respiratory Rate [Anterior Bilateral Throughout] Blood Pressure 114/22 114/22 O2 Sat by Pulse 94 94 Oximetry 08/14/17 08/14/17 08/14/17 23:20 23:30 23:32 Temperature Pulse Rate 74 77 63 Pulse Rate [ Anterior Bilateral Throughout] Respiratory 16 16 16 Rate Respiratory Rate [Anterior Bilateral Throughout] Blood Pressure 114/22 107/54 107/54 O2 Sat by Pulse 94 100 96 Oximetry 08/14/17 08/14/17 08/15/17 23:40 23:50 00:00 Temperature Pulse Rate 66 62 63 Pulse Rate [ 56 L Anterior Bilateral Throughout] Respiratory 19 16 19 Rate Respiratory 17 Rate [Anterior Bilateral Throughout] Blood Pressure 107/54 107/54 107/60 O2 Sat by Pulse 96 98 98 Oximetry 08/15/17 08/15/17 08/15/17 00:10 00:15 00:20 Temperature Pulse Rate 62 61 Pulse Rate [ 65 Anterior Bilateral Throughout] Respiratory 18 18 Rate Respiratory 17 Rate [Anterior Bilateral Throughout] Blood Pressure 107/60 107/60 O2 Sat by Pulse 97 97 Oximetry 08/15/17 08/15/17 08/15/17 00:30 00:40 00:50 Temperature Pulse Rate 62 63 59 L Pulse Rate [ Anterior Bilateral Throughout] Respiratory 17 19 22 Rate Respiratory Rate [Anterior Bilateral Throughout] Blood Pressure 107/60 107/60 107/60 O2 Sat by Pulse 96 96 98 Oximetry 08/15/17 08/15/17 08/15/17 01:00 01:10 01:20 Temperature Pulse Rate 60 65 61 Pulse Rate [ Anterior Bilateral Throughout] Respiratory 30 H 19 16 Rate Respiratory Rate [Anterior Bilateral Throughout] Blood Pressure 109/48 109/48 109/48 O2 Sat by Pulse 98 97 98 Oximetry 08/15/17 08/15/17 08/15/17 01:30 01:40 01:50 Temperature Pulse Rate 55 L 55 L 59 L Pulse Rate [ Anterior Bilateral Throughout] Respiratory 15 16 17 Rate Respiratory Rate [Anterior Bilateral Throughout] Blood Pressure 109/48 109/48 109/48 O2 Sat by Pulse 98 99 99 Oximetry 08/15/17 08/15/17 08/15/17 02:00 02:10 02:20 Temperature Pulse Rate 59 L 102 H 57 L Pulse Rate [ Anterior Bilateral Throughout] Respiratory 18 25 H 20 Rate Respiratory Rate [Anterior Bilateral Throughout] Blood Pressure 114/54 114/54 114/54 O2 Sat by Pulse 100 97 96 Oximetry 08/15/17 08/15/17 08/15/17 02:30 02:40 02:50 Temperature Pulse Rate 67 60 53 L Pulse Rate [ Anterior Bilateral Throughout] Respiratory 17 22 18 Rate Respiratory Rate [Anterior Bilateral Throughout] Blood Pressure 114/54 114/54 114/54 O2 Sat by Pulse 98 95 96 Oximetry 08/15/17 08/15/17 08/15/17 03:00 03:10 03:20 Temperature Pulse Rate 58 L 54 L 59 L Pulse Rate [ Anterior Bilateral Throughout] Respiratory 18 19 19 Rate Respiratory Rate [Anterior Bilateral Throughout] Blood Pressure 114/54 114/54 114/54 O2 Sat by Pulse 95 95 96 Oximetry 08/15/17 08/15/17 08/15/17 03:30 03:40 03:50 Temperature Pulse Rate 51 L 49 L 53 L Pulse Rate [ Anterior Bilateral Throughout] Respiratory 18 18 18 Rate Respiratory Rate [Anterior Bilateral Throughout] Blood Pressure 117/63 117/63 117/63 O2 Sat by Pulse 98 98 98 Oximetry 08/15/17 08/15/17 08/15/17 03:54 03:57 04:00 Temperature 99.4 F Pulse Rate 60 Pulse Rate [ 68 Anterior Bilateral Throughout] Respiratory 19 Rate Respiratory 19 Rate [Anterior Bilateral Throughout] Blood Pressure 117/63 O2 Sat by Pulse 96 Oximetry 08/15/17 08/15/17 08/15/17 04:10 04:20 04:30 Temperature Pulse Rate 78 61 66 Pulse Rate [ 70 Anterior Bilateral Throughout] Respiratory 15 21 20 Rate Respiratory 19 Rate [Anterior Bilateral Throughout] Blood Pressure 116/68 116/68 116/68 O2 Sat by Pulse 93 93 94 Oximetry 08/15/17 08/15/17 08/15/17 04:40 04:50 05:00 Temperature Pulse Rate 51 L 59 L 54 L Pulse Rate [ Anterior Bilateral Throughout] Respiratory 20 17 15 Rate Respiratory Rate [Anterior Bilateral Throughout] Blood Pressure 116/68 116/68 97/56 O2 Sat by Pulse 95 98 97 Oximetry 08/15/17 08/15/17 08/15/17 05:10 05:20 05:30 Temperature Pulse Rate 52 L 62 54 L Pulse Rate [ Anterior Bilateral Throughout] Respiratory 18 18 14 Rate Respiratory Rate [Anterior Bilateral Throughout] Blood Pressure 97/56 97/56 97/56 O2 Sat by Pulse 98 97 94 Oximetry 08/15/17 08/15/17 08/15/17 05:40 05:50 06:00 Temperature Pulse Rate 49 L 57 L 50 L Pulse Rate [ Anterior Bilateral Throughout] Respiratory 21 19 18 Rate Respiratory Rate [Anterior Bilateral Throughout] Blood Pressure 97/56 97/56 103/53 O2 Sat by Pulse 93 93 100 Oximetry 08/15/17 08/15/17 08/15/17 06:05 06:10 06:20 Temperature Pulse Rate 52 L 52 L 54 L Pulse Rate [ Anterior Bilateral Throughout] Respiratory 19 18 20 Rate Respiratory Rate [Anterior Bilateral Throughout] Blood Pressure 103/53 103/53 O2 Sat by Pulse 98 98 99 Oximetry 08/15/17 08/15/17 08/15/17 06:30 06:40 06:50 Temperature Pulse Rate 51 L 53 L 46 L Pulse Rate [ Anterior Bilateral Throughout] Respiratory 20 19 20 Rate Respiratory Rate [Anterior Bilateral Throughout] Blood Pressure 103/53 103/53 103/53 O2 Sat by Pulse 97 98 97 Oximetry 08/15/17 08/15/17 08/15/17 07:00 07:10 07:20 Temperature Pulse Rate 48 L 90 63 Pulse Rate [ Anterior Bilateral Throughout] Respiratory 21 22 18 Rate Respiratory Rate [Anterior Bilateral Throughout] Blood Pressure 111/63 111/63 111/63 O2 Sat by Pulse 95 95 92 Oximetry 08/15/17 08/15/17 08/15/17 07:30 07:39 07:40 Temperature Pulse Rate 54 L 49 L Pulse Rate [ 59 L Anterior Bilateral Throughout] Respiratory 27 H 20 Rate Respiratory 16 Rate [Anterior Bilateral Throughout] Blood Pressure 111/63 111/63 O2 Sat by Pulse 92 93 93 Oximetry 08/15/17 08/15/17 08/15/17 07:50 08:00 08:10 Temperature 97.7 F Pulse Rate 51 L 66 100 H Pulse Rate [ 100 H Anterior Bilateral Throughout] Respiratory 25 H 21 22 Rate Respiratory 20 Rate [Anterior Bilateral Throughout] Blood Pressure 111/63 122/75 122/75 O2 Sat by Pulse 96 96 93 Oximetry 08/15/17 08/15/17 08/15/17 08:11 08:20 08:30 Temperature Pulse Rate 72 65 Pulse Rate [ Anterior Bilateral Throughout] Respiratory 23 19 Rate Respiratory Rate [Anterior Bilateral Throughout] Blood Pressure 122/75 122/75 O2 Sat by Pulse 93 90 92 Oximetry 08/15/17 08/15/17 08/15/17 08:40 08:50 09:00 Temperature Pulse Rate 59 L 70 72 Pulse Rate [ Anterior Bilateral Throughout] Respiratory 21 19 20 Rate Respiratory Rate [Anterior Bilateral Throughout] Blood Pressure 122/75 122/75 115/67 O2 Sat by Pulse 93 93 94 Oximetry 08/15/17 08/15/17 08/15/17 09:10 09:20 09:30 Temperature Pulse Rate 63 67 68 Pulse Rate [ Anterior Bilateral Throughout] Respiratory 19 18 21 Rate Respiratory Rate [Anterior Bilateral Throughout] Blood Pressure 115/67 115/67 115/67 O2 Sat by Pulse 95 95 96 Oximetry Constitutional: no acute distress, asleep Eyes: non-icteric Neck: supple Ascultation: Bilateral: diminished breath sounds, wheezes CBC and BMP: 08/14/17 03:55 08/14/17 03:55 ABG, PT/INR, D-dimer: ABG ABG pH 7.444 pH Units (7.350-7.450) 08/14/17 20:54 ABG pCO2 44.1 mm Hg 08/14/17 20:54 ABG pO2 137.8 mm Hg (80.0-90.0) H 08/14/17 20:54 ABG O2 Saturation 98.7 % (95.0-99.0) 08/14/17 20:54 PT/INR, D-dimer D-Dimer < 135.00 ng/mlDDU (0-234) 08/12/17 17:28 Abnormal lab findings: Abnormal Labs 08/13/17 08/13/17 08/13/17 02:54 04:00 14:40 WBC 12.7 H Lymph % (Auto) Lymph # Seg Neutrophils % Lymphocytes % (Manual) 2.0 L Seg Neutrophils # Seg Neutrophils # Man 12.2 H Lymphocytes # (Manual) 0.3 L ABG pH 7.257 L ABG pO2 99.2 H ABG HCO3 29.9 H ABG Base Excess -4.3 L 4.2 H Oxyhemoglobin Carbon Dioxide Creatinine Glucose Triglycerides 08/14/17 08/14/17 08/14/17 03:55 03:55 04:36 WBC 12.8 H Lymph % (Auto) 4.4 L Lymph # 0.6 L Seg Neutrophils % 89.9 H Lymphocytes % (Manual) Seg Neutrophils # 11.5 H Seg Neutrophils # Man Lymphocytes # (Manual) ABG pH ABG pO2 70.8 L ABG HCO3 32.0 H ABG Base Excess 6.7 H Oxyhemoglobin 94.0 L Carbon Dioxide 31 H Creatinine 0.6 L Glucose 137 H Triglycerides 08/14/17 08/15/17 20:54 04:53 WBC Lymph % (Auto) Lymph # Seg Neutrophils % Lymphocytes % (Manual) Seg Neutrophils # Seg Neutrophils # Man Lymphocytes # (Manual) ABG pH ABG pO2 137.8 H ABG HCO3 29.6 H ABG Base Excess 4.8 H Oxyhemoglobin Carbon Dioxide Creatinine Glucose Triglycerides 161 H
[2017-08-15] MEDS ORDERED: PROVENTIL IH PRN (10:53)
[2017-08-15] MEDS: PEPCID IV SCH ×2 (10:55→22:03)
[2017-08-15] MEDS ORDERED: PNEUMOVAX 23 IM ONE (12:00)
[2017-08-15] MEDS ORDERED: Fluarix Quad 2017-2018(36 MOS+) IM ONE (12:00)
[2017-08-15] MEDS: BROVANA NEBU IH SCH (19:48)
--- NOTE | 2017-08-15 21:21 | Progress Note ---
Assessment and Plan Assessment and plan: 32 years old male with asthma who ran out of his medications and admitted for severe respiratory distress that required intubation 1. Acute respiratory failure Secondary to asthma exacerbation Failed BIPAP in ER and intubated Selfextubate in day 2 Treating underlying condition 2. Asthma exacerbation Start corticosteroids taper, still iv, inhaled bronchodilators; adjustments made by pulmonary 3. Suspected Sepsis Tachycardia/leukocytosis/asthma exacerbation Sputum/blood cultures obtained Lactic acid wnl Received IV fluids, antibiotic 4. Alcohol abuse [facility] protocol Counseled 5. Drug abuse UDS positive for marijuana Counseled 6. DVT prophylaxis Lovenox History Interval history: self extubated last night, doing well Hospitalist Physical - Constitutional Vitals: Temp Pulse Resp BP Pulse Ox 98.4 F 60 18 120/49 96 08/15/17 12:00 08/15/17 20:00 08/15/17 20:00 08/15/17 12:50 08/15/17 16:00 General appearance: Present: no acute distress, well-nourished - EENT Eyes: Present: PERRL, EOM intact. Absent: scleral icterus, conjunctival injection - Neck Neck: Present: supple, normal ROM, masses or JVD - Respiratory Respiratory effort: normal, stridor Respiratory: bilateral: diminished, wheezing - Cardiovascular Rhythm: regular Heart Sounds: Present: S1 & S2. Absent: systolic murmur - Extremities Extremities: no ischemia - Abdominal General gastrointestinal: soft, non-tender, non-distended, normal bowel sounds - Neurologic Neurologic: CNII-XII intact, no focal deficits Results - Labs CBC & Chem 7: 08/14/17 03:55 08/14/17 03:55 Labs: Laboratory Last Values WBC 12.8 K/mm3 (4.5-11.0) H 08/14/17 03:55 RBC 4.42 M/mm3 (3.65-5.03) 08/14/17 03:55 Hgb 14.0 gm/dl (11.8-15.2) 08/14/17 03:55 Hct 41.4 % (35.5-45.6) 08/14/17 03:55 MCV 94 fl (84-94) 08/14/17 03:55 MCH 32 pg (28-32) 08/14/17 03:55 MCHC 34 % (32-34) 08/14/17 03:55 RDW 14.2 % (13.2-15.2) 08/14/17 03:55 Plt Count 159 K/mm3 (140-440) 08/14/17 03:55 Lymph % (Auto) 4.4 % (13.4-35.0) L 08/14/17 03:55 [place] % (Auto) 5.5 % (0.0-7.3) 08/14/17 03:55 Eos % (Auto) 0.0 % (0.0-4.3) 08/14/17 03:55 Baso % (Auto) 0.2 % (0.0-1.8) 08/14/17 03:55 Lymph # 0.6 K/mm3 (1.2-5.4) L 08/14/17 03:55 [place] # 0.7 K/mm3 (0.0-0.8) 08/14/17 03:55 Eos # 0.0 K/mm3 (0.0-0.4) 08/14/17 03:55 Baso # 0.0 K/mm3 (0.0-0.1) 08/14/17 03:55 Add Manual Diff Complete 08/13/17 02:54 Total Counted 100 08/13/17 02:54 Seg Neutrophils % 89.9 % (40.0-70.0) H 08/14/17 03:55 Band Neutrophils % 1.0 % 08/13/17 02:54 Lymphocytes % (Manual) 2.0 % (13.4-35.0) L 08/13/17 02:54 Reactive Lymphs % (Man) 0 % 08/13/17 02:54 Monocytes % (Manual) 1.0 % (0.0-7.3) 08/13/17 02:54 Metamyelocytes % 0 % 08/13/17 02:54 Myelocytes % 0 % 08/13/17 02:54 Promyelocytes % 0 % 08/13/17 02:54 Blast Cells % 0 % 08/13/17 02:54 Nucleated RBC % Not Reportable 08/13/17 02:54 Seg Neutrophils # 11.5 K/mm3 (1.8-7.7) H 08/14/17 03:55 Seg Neutrophils # Man 12.2 K/mm3 (1.8-7.7) H 08/13/17 02:54 Band Neutrophils # 0.1 K/mm3 08/13/17 02:54 Lymphocytes # (Manual) 0.3 K/mm3 (1.2-5.4) L 08/13/17 02:54 Abs React Lymphs (Man) 0.0 K/mm3 08/13/17 02:54 Monocytes # (Manual) 0.1 K/mm3 (0.0-0.8) 08/13/17 02:54 Eosinophils # (Manual) 0.0 K/mm3 (0.0-0.4) 08/13/17 02:54 Basophils # (Manual) 0.0 K/mm3 (0.0-0.1) 08/13/17 02:54 Metamyelocytes # 0.0 K/mm3 08/13/17 02:54 Myelocytes # 0.0 K/mm3 08/13/17 02:54 Promyelocytes # 0.0 K/mm3 08/13/17 02:54 Blast Cells # 0.0 K/mm3 08/13/17 02:54 WBC Morphology Not Reportable 08/13/17 02:54 Hypersegmented Neuts Not Reportable 08/13/17 02:54 Hyposegmented Neuts Not Reportable 08/13/17 02:54 Hypogranular Neuts Not Reportable 08/13/17 02:54 Smudge Cells Not Reportable 08/13/17 02:54 Toxic Granulation Not Reportable 08/13/17 02:54 Toxic Vacuolation Not Reportable 08/13/17 02:54 Dohle Bodies Not Reportable 08/13/17 02:54 Pelger-Huet Anomaly Not Reportable 08/13/17 02:54 Hal Rods Not Reportable 08/13/17 02:54 Platelet Estimate Consistent w auto 08/13/17 02:54 Clumped Platelets Not Reportable 08/13/17 02:54 Plt Clumps, EDTA Not Reportable 08/13/17 02:54 Large Platelets Not Reportable 08/13/17 02:54 Giant Platelets Not Reportable 08/13/17 02:54 Platelet Satelliting Not Reportable 08/13/17 02:54 Plt Morphology Comment Not Reportable 08/13/17 02:54 RBC Morphology Not Reportable 08/13/17 02:54 Dimorphic RBCs Not Reportable 08/13/17 02:54 Polychromasia Not Reportable 08/13/17 02:54 Hypochromasia Not Reportable 08/13/17 02:54 Poikilocytosis Not Reportable 08/13/17 02:54 Anisocytosis Not Reportable 08/13/17 02:54 Microcytosis Not Reportable 08/13/17 02:54 Macrocytosis Not Reportable 08/13/17 02:54 Spherocytes Not Reportable 08/13/17 02:54 Pappenheimer Bodies Not Reportable 08/13/17 02:54 Sickle Cells Not Reportable 08/13/17 02:54 Target Cells Not Reportable 08/13/17 02:54 Tear Drop Cells Not Reportable 08/13/17 02:54 Ovalocytes Not Reportable 08/13/17 02:54 Helmet Cells Not Reportable 08/13/17 02:54 [place] Bodies Not Reportable 08/13/17 02:54 [place] Rings Not Reportable 08/13/17 02:54 [place] Cells Few 08/13/17 02:54 Bite Cells Not Reportable 08/13/17 02:54 Crenated Cell Not Reportable 08/13/17 02:54 Elliptocytes Not Reportable 08/13/17 02:54 Acanthocytes (Spur) Not Reportable 08/13/17 02:54 Rouleaux Not Reportable 08/13/17 02:54 Hemoglobin C Crystals Not Reportable 08/13/17 02:54 Schistocytes Not Reportable 08/13/17 02:54 Malaria parasites Not Reportable 08/13/17 02:54 Gregorio Bodies Not Reportable 08/13/17 02:54 Hem Pathologist Commnt No 08/13/17 02:54 D-Dimer < 135.00 ng/mlDDU (0-234) 08/12/17 17:28 ABG pH 7.444 pH Units (7.350-7.450) 08/14/17 20:54 ABG pCO2 44.1 mm Hg 08/14/17 20:54 ABG pO2 137.8 mm Hg (80.0-90.0) H 08/14/17 20:54 ABG HCO3 29.6 mmol/L (20.0-26.0) H 08/14/17 20:54 ABG O2 Saturation 98.7 % (95.0-99.0) 08/14/17 20:54 ABG O2 Content 19.4 (0.0-44) 08/14/17 20:54 ABG Base Excess 4.8 mmol/L (-2.0-3.0) H 08/14/17 20:54 ABG Hemoglobin 14.1 gm/dl (14.0-18.0) 08/14/17 20:54 ABG Carboxyhemoglobin 1.1 % (0.0-5.0) 08/14/17 20:54 ABG Methemoglobin 0.6 % (0.0-1.5) 08/14/17 20:54 Oxyhemoglobin 97.0 % (95.0-99.0) 08/14/17 20:54 FiO2 100 % 08/14/17 20:54 Sodium 142 mmol/L (137-145) 08/14/17 03:55 Potassium 4.5 mmol/L (3.6-5.0) 08/14/17 03:55 Chloride 100.0 mmol/L (98-107) 08/14/17 03:55 Carbon Dioxide 31 mmol/L (22-30) H 08/14/17 03:55 Anion Gap 16 mmol/L 08/14/17 03:55 BUN 15 mg/dL (9-20) 08/14/17 03:55 Creatinine 0.6 mg/dL (0.8-1.5) L 08/14/17 03:55 Estimated GFR > 60 ml/min 08/14/17 03:55 BUN/Creatinine Ratio 25 % 08/14/17 03:55 Glucose 137 mg/dL (75-100) H 08/14/17 03:55 POC Glucose 105 (70-105) 08/14/17 11:34 Lactic Acid 1.40 mmol/L (0.7-2.0) 08/13/17 14:25 Calcium 9.2 mg/dL (8.4-10.2) 08/14/17 03:55 Troponin T < 0.010 ng/mL (0.00-0.029) 08/12/17 16:31 Triglycerides 161 mg/dL (2-149) H 08/15/17 04:53 Urine Opiates Screen Presumptive negative 08/13/17 13:50 Urine Methadone Screen Presumptive negative 08/13/17 13:50 Ur Barbiturates Screen Presumptive negative 08/13/17 13:50 Ur Phencyclidine Scrn Presumptive negative 08/13/17 13:50 Ur Amphetamines Screen Presumptive negative 08/13/17 13:50 U Benzodiazepines Scrn Presumptive negative 08/13/17 13:50 Urine Cocaine Screen Presumptive negative 08/13/17 13:50 U Marijuana (THC) Screen Presumptive positive 08/13/17 13:50 Drugs of Abuse Note Disclamer 08/13/17 13:50
[2017-08-15] MEDS: LOVENOX SUB-Q SCH (22:03)
[2017-08-16] MEDS: PULMICORT IH SCH ×2 (08:41→20:14)
[2017-08-16] MEDS: BROVANA NEBU IH SCH ×2 (08:41→20:14)
[2017-08-16] MEDS: PEPCID IV SCH ×2 (10:11→22:09)
--- NOTE | 2017-08-16 11:38 | Progress Note ---
Assessment and Plan Acute respiratory failure secondary to asthma Near fatal asthma episode, also prior history of intubation Tobacco abuse. Potential trigger for episode. Discussed with patient Recommendations Ambulate patient and monitor oximetry. Add portable oxygen 2 L/m if oximetry below 89% on room air. Updated influenza and pneumonia vaccination Smoking cessation and relationship with asthma episode discussed with the patient in detail. Counseling given nicotine replacement therapy discussed Outpatient pulmonary evaluation, PFT workup for asthma/COPD Inhaler therapy including LRTE, LABA/ICS therapy, Past restorative steroids. Recommend prednisone 30-40 mg daily with tapering the next 7-10 days Plan remove of Vargas catheter Needs OPD pulmonary follow-up after discharge. Subjective Date of service: 08/16/17 Interval history: Reports no respiratory complaints, no wheezing or shortness of breath this morning. Objective Vital Signs - 12hr 08/16/17 07:24 Temperature 99.3 F Pulse Rate 46 L Respiratory 18 Rate Blood Pressure 101/57 O2 Sat by Pulse 92 Oximetry Constitutional: no acute distress, alert, asleep Eyes: non-icteric ENT: oropharynx dry Neck: supple, no JVD Ascultation: Bilateral: clear, diminished breath sounds, wheezes (occasional right base) Cardiovascular: regular rate and rhythm Gastrointestinal: normoactive bowel sounds, non-distended Integumentary: normal Extremities: no cyanosis, no cyanosis, no cyanosis Neurologic: normal mental status, non-focal exam, pupils equal and round, CN II- XII normal Psychiatric: mood appropriate, affect normal CBC and BMP: 08/14/17 03:55 08/14/17 03:55 ABG, PT/INR, D-dimer: ABG ABG pH 7.444 pH Units (7.350-7.450) 08/14/17 20:54 ABG pCO2 44.1 mm Hg 08/14/17 20:54 ABG pO2 137.8 mm Hg (80.0-90.0) H 08/14/17 20:54 ABG O2 Saturation 98.7 % (95.0-99.0) 08/14/17 20:54 PT/INR, D-dimer D-Dimer < 135.00 ng/mlDDU (0-234) 08/12/17 17:28 Abnormal lab findings: Abnormal Labs 08/13/17 08/13/17 08/13/17 02:54 04:00 14:40 WBC 12.7 H Lymph % (Auto) Lymph # Seg Neutrophils % Lymphocytes % (Manual) 2.0 L Seg Neutrophils # Seg Neutrophils # Man 12.2 H Lymphocytes # (Manual) 0.3 L ABG pH 7.257 L ABG pO2 99.2 H ABG HCO3 29.9 H ABG Base Excess -4.3 L 4.2 H Oxyhemoglobin Carbon Dioxide Creatinine Glucose Triglycerides 08/14/17 08/14/17 08/14/17 03:55 03:55 04:36 WBC 12.8 H Lymph % (Auto) 4.4 L Lymph # 0.6 L Seg Neutrophils % 89.9 H Lymphocytes % (Manual) Seg Neutrophils # 11.5 H Seg Neutrophils # Man Lymphocytes # (Manual) ABG pH ABG pO2 70.8 L ABG HCO3 32.0 H ABG Base Excess 6.7 H Oxyhemoglobin 94.0 L Carbon Dioxide 31 H Creatinine 0.6 L Glucose 137 H Triglycerides 08/14/17 08/15/17 20:54 04:53 WBC Lymph % (Auto) Lymph # Seg Neutrophils % Lymphocytes % (Manual) Seg Neutrophils # Seg Neutrophils # Man Lymphocytes # (Manual) ABG pH ABG pO2 137.8 H ABG HCO3 29.6 H ABG Base Excess 4.8 H Oxyhemoglobin Carbon Dioxide Creatinine Glucose Triglycerides 161 H Chest x-ray: report reviewed, image reviewed
[2017-08-16 18:08] LABS: Bilirubin,Urine NEG (Negative); Blood,Urine MOD (Negative); Ketones,Urine NEG (Negative); Leukocyte Esterase,Urine NEG (Negative); Mucus,Urine FEW /HPF; Nitrite,Urine NEG (Negative)
--- NOTE | 2017-08-16 19:12 | Progress Note ---
Assessment and Plan Assessment and plan: 32 years old male with asthma who ran out of his medications and admitted for severe respiratory distress that required intubation 1. Acute respiratory failure Secondary to asthma exacerbation Failed BIPAP in ER and intubated Selfextubate in day 2 Treating underlying condition 2. Asthma exacerbation Severe episode requiring intubation On corticosteroid taper now (plan to switch to po in am), inhaled bronchodilators; adjustments made by pulmonary Supplemental O2 3. Suspected Sepsis Tachycardia/leukocytosis/asthma exacerbation Sputum/blood cultures obtained Lactic acid wnl Received IV fluids, antibiotic 4. Alcohol abuse [facility] protocol Counseled 5. Drug abuse UDS positive for marijuana Counseled 6. Tobacco abuse Possible trigger for asthma exacerbation Counseled regarding importance of quitting 6. DVT prophylaxis Lovenox 7. Dispo Needs outpatient pulmonary follow-up for PFTs, monitoring, management History Interval history: doing well, no specific complaints Hospitalist Physical - Constitutional Vitals: Temp Pulse Resp BP Pulse Ox 99.3 F 54 L 18 114/62 94 08/16/17 15:38 08/16/17 15:38 08/16/17 15:38 08/16/17 15:38 08/16/17 15:38 General appearance: Present: no acute distress, well-nourished - EENT Eyes: Present: PERRL, EOM intact - Neck Neck: Present: supple, normal ROM. Absent: masses or JVD - Respiratory Respiratory effort: normal Respiratory: bilateral: CTA, wheezing (rare exp wheezes), negative: rhonchi - Cardiovascular Rhythm: regular Heart Sounds: Present: S1 & S2. Absent: systolic murmur - Extremities Extremities: no ischemia - Abdominal General gastrointestinal: soft, non-tender, non-distended, normal bowel sounds - Psychiatric Psychiatric: cooperative - Neurologic Neurologic: CNII-XII intact, no focal deficits Results - Labs CBC & Chem 7: 08/14/17 03:55 08/14/17 03:55 Labs: Laboratory Last Values WBC 12.8 K/mm3 (4.5-11.0) H 08/14/17 03:55 RBC 4.42 M/mm3 (3.65-5.03) 08/14/17 03:55 Hgb 14.0 gm/dl (11.8-15.2) 08/14/17 03:55 Hct 41.4 % (35.5-45.6) 08/14/17 03:55 MCV 94 fl (84-94) 08/14/17 03:55 MCH 32 pg (28-32) 08/14/17 03:55 MCHC 34 % (32-34) 08/14/17 03:55 RDW 14.2 % (13.2-15.2) 08/14/17 03:55 Plt Count 159 K/mm3 (140-440) 08/14/17 03:55 Lymph % (Auto) 4.4 % (13.4-35.0) L 08/14/17 03:55 [place] % (Auto) 5.5 % (0.0-7.3) 08/14/17 03:55 Eos % (Auto) 0.0 % (0.0-4.3) 08/14/17 03:55 Baso % (Auto) 0.2 % (0.0-1.8) 08/14/17 03:55 Lymph # 0.6 K/mm3 (1.2-5.4) L 08/14/17 03:55 [place] # 0.7 K/mm3 (0.0-0.8) 08/14/17 03:55 Eos # 0.0 K/mm3 (0.0-0.4) 08/14/17 03:55 Baso # 0.0 K/mm3 (0.0-0.1) 08/14/17 03:55 Add Manual Diff Complete 08/13/17 02:54 Total Counted 100 08/13/17 02:54 Seg Neutrophils % 89.9 % (40.0-70.0) H 08/14/17 03:55 Band Neutrophils % 1.0 % 08/13/17 02:54 Lymphocytes % (Manual) 2.0 % (13.4-35.0) L 08/13/17 02:54 Reactive Lymphs % (Man) 0 % 08/13/17 02:54 Monocytes % (Manual) 1.0 % (0.0-7.3) 08/13/17 02:54 Metamyelocytes % 0 % 08/13/17 02:54 Myelocytes % 0 % 08/13/17 02:54 Promyelocytes % 0 % 08/13/17 02:54 Blast Cells % 0 % 08/13/17 02:54 Nucleated RBC % Not Reportable 08/13/17 02:54 Seg Neutrophils # 11.5 K/mm3 (1.8-7.7) H 08/14/17 03:55 Seg Neutrophils # Man 12.2 K/mm3 (1.8-7.7) H 08/13/17 02:54 Band Neutrophils # 0.1 K/mm3 08/13/17 02:54 Lymphocytes # (Manual) 0.3 K/mm3 (1.2-5.4) L 08/13/17 02:54 Abs React Lymphs (Man) 0.0 K/mm3 08/13/17 02:54 Monocytes # (Manual) 0.1 K/mm3 (0.0-0.8) 08/13/17 02:54 Eosinophils # (Manual) 0.0 K/mm3 (0.0-0.4) 08/13/17 02:54 Basophils # (Manual) 0.0 K/mm3 (0.0-0.1) 08/13/17 02:54 Metamyelocytes # 0.0 K/mm3 08/13/17 02:54 Myelocytes # 0.0 K/mm3 08/13/17 02:54 Promyelocytes # 0.0 K/mm3 08/13/17 02:54 Blast Cells # 0.0 K/mm3 08/13/17 02:54 WBC Morphology Not Reportable 08/13/17 02:54 Hypersegmented Neuts Not Reportable 08/13/17 02:54 Hyposegmented Neuts Not Reportable 08/13/17 02:54 Hypogranular Neuts Not Reportable 08/13/17 02:54 Smudge Cells Not Reportable 08/13/17 02:54 Toxic Granulation Not Reportable 08/13/17 02:54 Toxic Vacuolation Not Reportable 08/13/17 02:54 Dohle Bodies Not Reportable 08/13/17 02:54 Pelger-Huet Anomaly Not Reportable 08/13/17 02:54 Hal Rods Not Reportable 08/13/17 02:54 Platelet Estimate Consistent w auto 08/13/17 02:54 Clumped Platelets Not Reportable 08/13/17 02:54 Plt Clumps, EDTA Not Reportable 08/13/17 02:54 Large Platelets Not Reportable 08/13/17 02:54 Giant Platelets Not Reportable 08/13/17 02:54 Platelet Satelliting Not Reportable 08/13/17 02:54 Plt Morphology Comment Not Reportable 08/13/17 02:54 RBC Morphology Not Reportable 08/13/17 02:54 Dimorphic RBCs Not Reportable 08/13/17 02:54 Polychromasia Not Reportable 08/13/17 02:54 Hypochromasia Not Reportable 08/13/17 02:54 Poikilocytosis Not Reportable 08/13/17 02:54 Anisocytosis Not Reportable 08/13/17 02:54 Microcytosis Not Reportable 08/13/17 02:54 Macrocytosis Not Reportable 08/13/17 02:54 Spherocytes Not Reportable 08/13/17 02:54 Pappenheimer Bodies Not Reportable 08/13/17 02:54 Sickle Cells Not Reportable 08/13/17 02:54 Target Cells Not Reportable 08/13/17 02:54 Tear Drop Cells Not Reportable 08/13/17 02:54 Ovalocytes Not Reportable 08/13/17 02:54 Helmet Cells Not Reportable 08/13/17 02:54 [place] Bodies Not Reportable 08/13/17 02:54 [place] Rings Not Reportable 08/13/17 02:54 [place] Cells Few 08/13/17 02:54 Bite Cells Not Reportable 08/13/17 02:54 Crenated Cell Not Reportable 08/13/17 02:54 Elliptocytes Not Reportable 08/13/17 02:54 Acanthocytes (Spur) Not Reportable 08/13/17 02:54 Rouleaux Not Reportable 08/13/17 02:54 Hemoglobin C Crystals Not Reportable 08/13/17 02:54 Schistocytes Not Reportable 08/13/17 02:54 Malaria parasites Not Reportable 08/13/17 02:54 Gregorio Bodies Not Reportable 08/13/17 02:54 Hem Pathologist Commnt No 08/13/17 02:54 D-Dimer < 135.00 ng/mlDDU (0-234) 08/12/17 17:28 ABG pH 7.444 pH Units (7.350-7.450) 08/14/17 20:54 ABG pCO2 44.1 mm Hg 08/14/17 20:54 ABG pO2 137.8 mm Hg (80.0-90.0) H 08/14/17 20:54 ABG HCO3 29.6 mmol/L (20.0-26.0) H 08/14/17 20:54 ABG O2 Saturation 98.7 % (95.0-99.0) 08/14/17 20:54 ABG O2 Content 19.4 (0.0-44) 08/14/17 20:54 ABG Base Excess 4.8 mmol/L (-2.0-3.0) H 08/14/17 20:54 ABG Hemoglobin 14.1 gm/dl (14.0-18.0) 08/14/17 20:54 ABG Carboxyhemoglobin 1.1 % (0.0-5.0) 08/14/17 20:54 ABG Methemoglobin 0.6 % (0.0-1.5) 08/14/17 20:54 Oxyhemoglobin 97.0 % (95.0-99.0) 08/14/17 20:54 FiO2 100 % 08/14/17 20:54 Sodium 142 mmol/L (137-145) 08/14/17 03:55 Potassium 4.5 mmol/L (3.6-5.0) 08/14/17 03:55 Chloride 100.0 mmol/L (98-107) 08/14/17 03:55 Carbon Dioxide 31 mmol/L (22-30) H 08/14/17 03:55 Anion Gap 16 mmol/L 08/14/17 03:55 BUN 15 mg/dL (9-20) 08/14/17 03:55 Creatinine 0.6 mg/dL (0.8-1.5) L 08/14/17 03:55 Estimated GFR > 60 ml/min 08/14/17 03:55 BUN/Creatinine Ratio 25 % 08/14/17 03:55 Glucose 137 mg/dL (75-100) H 08/14/17 03:55 POC Glucose 105 (70-105) 08/14/17 11:34 Lactic Acid 1.40 mmol/L (0.7-2.0) 08/13/17 14:25 Calcium 9.2 mg/dL (8.4-10.2) 08/14/17 03:55 Troponin T < 0.010 ng/mL (0.00-0.029) 08/12/17 16:31 Triglycerides 161 mg/dL (2-149) H 08/15/17 04:53 Urine Color Yellow (Yellow) 08/16/17 Unknown Urine Turbidity Clear (Clear) 08/16/17 Unknown Urine pH 7.0 (5.0-7.0) 08/16/17 Unknown Ur Specific [place] 1.029 (1.003-1.030) 08/16/17 Unknown Urine Protein 30 mg/dl mg/dL (Negative) 08/16/17 Unknown Urine Glucose (UA) 50 mg/dL (Negative) 08/16/17 Unknown Urine Ketones Neg mg/dL (Negative) 08/16/17 Unknown Urine Blood Mod (Negative) 08/16/17 Unknown Urine Nitrite Neg (Negative) 08/16/17 Unknown Urine Bilirubin Neg (Negative) 08/16/17 Unknown Urine Urobilinogen 4.0 mg/dL (<2.0) 08/16/17 Unknown Ur Leukocyte Esterase Neg (Negative) 08/16/17 Unknown Urine WBC (Auto) 2.0 /HPF (0.0-6.0) 08/16/17 Unknown Urine RBC (Auto) 81.0 /HPF (0.0-6.0) 08/16/17 Unknown Urine Mucus Few /HPF 08/16/17 Unknown Urine Opiates Screen Presumptive negative 08/13/17 13:50 Urine Methadone Screen Presumptive negative 08/13/17 13:50 Ur Barbiturates Screen Presumptive negative 08/13/17 13:50 Ur Phencyclidine Scrn Presumptive negative 08/13/17 13:50 Ur Amphetamines Screen Presumptive negative 08/13/17 13:50 U Benzodiazepines Scrn Presumptive negative 08/13/17 13:50 Urine Cocaine Screen Presumptive negative 08/13/17 13:50 U Marijuana (THC) Screen Presumptive positive 08/13/17 13:50 Drugs of Abuse Note Disclamer 08/13/17 13:50
[2017-08-16] MEDS: LOVENOX SUB-Q SCH (22:10)
[2017-08-17 07:55] VITALS: BP 118/69
[2017-08-17] MEDS: PULMICORT IH SCH (08:37)
[2017-08-17] MEDS: BROVANA NEBU IH SCH (08:37)
--- NOTE | 2017-08-17 09:39 | Discharge Summary ---
Providers - Providers Date of Admission: 08/12/17 18:46 Date of discharge: 08/17/17 Attending physician: ABILIO MORALES 08/17/17 08:45 Consult to Case Management [CONS] Routine Services Needed at Discharge: Home O2 Comment:: eval for home O2 Primary care physician: NATUROPATH Hospitalization Reason for admission: SOB, severe respiratory distress Condition: Stable Pertinent studies: Multiple chest x-rays Hospital course: Patient is a 32 years old AAM with asthma who ran out of his medications and was admitted for severe respiratory distress that required intubation. He was started on IV corticosteroids along with inhaled bronchodilators. Pulmonary was consulted and regimen has been adjusted. After 2 days he self extubated and was transitioned to oxygen per nasal cannula. Slowly improved, sats >90% on room air and was transitioned to po corticosteroids. He will be discharged on corticosteroid taper and pulmonary follow-up for PFTs. He is a smoker, drinks alcohol and uses marijuana; was extensively counseled regarding importance of quitting. Discharge diagnoses: 1. Acute respiratory failure 2. Asthma exacerbation 3. Tobacco abuse 4. Alcohol abuse 5. Drug abuse Disposition: DC-01 TO HOME OR SELFCARE Time spent for discharge: 40 min Core Measure Documentation - Palliative Care Palliative Care/ Comfort Measures: Not Applicable - Core Measures Any of the following diagnoses?: none Exam - Physical Exam Narrative exam: Seen and examined: - Constitutional Vitals: Temp Pulse Resp BP Pulse Ox 98.6 F 43 L 18 118/69 94 08/17/17 07:53 08/17/17 07:53 08/17/17 07:53 08/17/17 07:53 08/17/17 07:53 General appearance: Present: no acute distress - EENT Eyes: Present: PERRL, EOM intact - Neck Neck: Present: supple, normal ROM. Absent: masses or JVD - Respiratory Respiratory effort: normal Respiratory: bilateral: CTA, wheezing (rare exp wheezes), negative: rales, rhonchi - Cardiovascular Rhythm: regular Heart Sounds: Present: S1 & S2. Absent: systolic murmur - Extremities Extremities: no ischemia - Abdominal General gastrointestinal: Present: soft, non-tender, non-distended, normal bowel sounds - Neurologic Neurologic: CNII-XII intact, no focal deficits Plan Activity: advance as tolerated Diet: low cholesterol, low salt Additional Instructions: if no PCP available, follow up at [facility] Follow up with: PRIMARY MD WON [Primary Care Provider] - 3-5 Days ALEXEY TSE MD [Staff Physician] - 7 Days [facility] [Outside] - 7 Days Prescriptions: ALBUTEROL Inhaler [ProAir HFA Inhaler] 90 mcg IH PRN #1 inha Arformoterol Nebu [Brovana Nebu] 15 mcg IH Q12HRT #1 ml Budesonide [Pulmicort Respules] 0.5 mg IH Q12HRT #1 nebu predniSONE [Deltasone] 20 mg PO QDAY #15 tab
[2017-08-17] MEDS ORDERED: PEPCID PO SCH (10:00)
== END 2017-08-17 11:45 | disposition home or self-care (01) | DRG 871 ==
LOC: ED 15:48 → CC1 18:46 → 3A 08-15 16:46
PROVIDERS: ADMIT Internal Medicine; ATTEND Internal Medicine
PROC: 5A1945Z Respiratory Ventilation, 24-96 Consecutive Hours (ICD-10-PCS; 2017-08-12)
PROC: 0BH17EZ Insertion of Endotracheal Airway into Trachea, Via Natural or Artificial Opening (ICD-10-PCS; 2017-08-12)
PROC: 5A09357 Assistance with Respiratory Ventilation, Less than 24 Consecutive Hours, Continuous Positive Airway Pressure (ICD-10-PCS; 2017-08-12)
PROC: 3E0234Z Introduction of Serum, Toxoid and Vaccine into Muscle, Percutaneous Approach (ICD-10-PCS; principal; 2017-08-15)
DX: A41.9 Sepsis, unspecified organism (principal); J96.01 Acute respiratory failure with hypoxia; J45.901 Unspecified asthma with (acute) exacerbation; F10.10 Alcohol abuse, uncomplicated; F17.200 Nicotine dependence, unspecified, uncomplicated; F12.10 Cannabis abuse, uncomplicated; Z23 Encounter for immunization
CPT/HCPCS: 36415; 36600; 71010; 80048; 80307; 81001; 82140; 82803; 82962; 84478; 84484; 85007; 85025; 85379; 87040; 87086; 90686; 90732; 93005; 93010; 94002; 94003; 94640; 94760; 96365; 96375; J0330; J0456; J1650; J2060; J2704; J2920; J2930; J3010; J3475; J7030; J7050

== ENCOUNTER 2017-08-18 15:05 | Emergency (ER) | payer SELFPAY ==
[2017-08-18 16:06] LABS: Hematocrit 46.7 % (35.5-45.6); Hemoglobin 15.4 gm/dl (11.8-15.2); Mean Corpuscular HGB Conc 33 % (32-34); Mean Corpuscular Hemoglobin 30 pg (28-32); Mean Corpuscular Volume 92 fl (84-94); Platelet Count 252 K/mm3 (140-440); Red Blood Count 5.08 M/mm3 (3.65-5.03); Red Cell Distribution Width 13.2 % (13.2-15.2)
[2017-08-18] MEDS ORDERED: NACL 0.9% 1000 ML 1,000 ML IV ONE (16:09)
[2017-08-18] MEDS ORDERED: ZOFRAN IV ONE (16:10)
[2017-08-18 16:23] LABS: Alanine Aminotransferase 39 units/L (7-56); Albumin 3.6 g/dL (3.9-5); Albumin/Globulin Ratio 1.2 %; Alkaline Phosphatase 58 units/L (35-129); Anion Gap 17 mmol/L; BUN/Creatinine Ratio 19; Blood Urea Nitrogen 15 mg/dL (9-20); Calcium 9.8 mg/dL (8.4-10.2); Carbon Dioxide 30 mmol/L (22-30); Chloride 96.4 mmol/L (98-107); Glucose 105 mg/dL (75-100); Lipase 19 units/L (13-60); Potassium 3.7 mmol/L (3.6-5.0); Sodium 140 mmol/L (137-145); Total Protein 6.7 g/dL (6.3-8.2)
[2017-08-18 16:39] LABS: Basophils % (Manual) 0 % (0.0-1.8); Blastocytes % (Manual) 0 %
[2017-08-18 16:41] LABS: Anisocytosis Few; Diff Status Complete; Poikilocytosis Few
[2017-08-18] MEDS ORDERED: MORPHINE IV ONE (17:35)
[2017-08-18] MEDS ORDERED: PEPCID IV ONE (17:35)
--- NOTE | 2017-08-18 17:35 | Emergency Department Report ---
ED General Adult HPI - General Chief complaint: Abdominal Pain Stated complaint: ABD PAIN Time Seen by Provider: 08/18/17 16:23 Source: EMS Mode of arrival: Stretcher Limitations: No Limitations - History of Present Illness Initial comments: Pt is a 32-year-old male past medical history of asthma who presents with severe generalized abdominal pain. Patient states that abdominal pain has been going on for the last 3 days and has progressively gotten worse. He states the pains in 8 out 10 it is generalized this an achy burning type of pain nothing makes it better and nothing makes it worse. Patient also states that it was gradual in onset he's never had this type of pain before and he's had some nausea and vomiting with it. The nausea and vomiting has been nonbloody nonbilious. Severity scale (0 -10): 7 - Related Data Previous Rx's Medication Instructions Recorded Last Taken Type ALBUTEROL Inhaler [ProAir HFA 90 mcg IH PRN #1 inha 08/17/17 Unknown Rx Inhaler] Arformoterol Nebu [Brovana Nebu] 15 mcg IH Q12HRT #1 ml 08/17/17 Unknown Rx Budesonide [Pulmicort Respules] 0.5 mg IH Q12HRT #1 nebu 08/17/17 Unknown Rx predniSONE [Deltasone] 20 mg PO QDAY #15 tab 08/17/17 Unknown Rx Famotidine [Pepcid] 20 mg PO BID #30 tablet 08/18/17 Unknown Rx traMADol [Ultram 50 MG tab] 50 mg PO Q6HR PRN #15 tablet 08/18/17 Unknown Rx Allergies Allergy/AdvReac Type Severity Reaction Status Date / Time No Known Allergies Allergy Unverified 08/12/17 16:00 ED Review of Systems ROS: Stated complaint: ABD PAIN Other details as noted in HPI Constitutional: denies: chills, fever Eyes: denies: eye pain, eye discharge, vision change ENT: denies: ear pain, throat pain Respiratory: denies: cough, shortness of breath, wheezing Cardiovascular: denies: chest pain, palpitations Endocrine: no symptoms reported Gastrointestinal: abdominal pain, nausea, vomiting. denies: diarrhea Genitourinary: denies: urgency, dysuria Musculoskeletal: denies: back pain, joint swelling, arthralgia Skin: denies: rash, lesions Neurological: denies: headache, weakness, paresthesias Psychiatric: denies: anxiety, depression Hematological/Lymphatic: denies: easy bleeding, easy bruising ED Past Medical Hx - Past Medical History Previous Medical History?: Yes Hx Hypertension: No Hx CVA: No Hx Heart Attack/AMI: No Hx Congestive Heart Failure: No Hx Diabetes: No Hx Deep Vein Thrombosis: No Hx Pulmonary Embolism: No Hx GERD: No Hx Liver Disease: No Hx Renal Disease: No Hx Sickle Cell Disease: No Hx Arthritis: No Hx Headaches / Migraines: No Hx Seizures: No Hx Kidney Stones: No Hx Psychiatric Treatment: No Hx Asthma: Yes Hx COPD: No Hx Tuberculosis: No Hx Dementia: No Hx HIV: No - Surgical History Hx Coronary Stent: No Hx Open Heart Surgery: No Hx Pacemaker: No Hx Internal Defibrillator: No Hx Cholecystectomy: No Hx Appendectomy: No Hx Breast Surgery: No - Social History Smoking Status: Never Smoker Substance Use Type: None - Medications Home Medications: Home Medications Medication Instructions Recorded Confirmed Last Taken Type ALBUTEROL Inhaler [ProAir HFA 90 mcg IH PRN #1 inha 08/17/17 Unknown Rx Inhaler] Arformoterol Nebu [Brovana Nebu] 15 mcg IH Q12HRT #1 ml 08/17/17 Unknown Rx Budesonide [Pulmicort Respules] 0.5 mg IH Q12HRT #1 nebu 08/17/17 Unknown Rx predniSONE [Deltasone] 20 mg PO QDAY #15 tab 08/17/17 Unknown Rx Famotidine [Pepcid] 20 mg PO BID #30 tablet 08/18/17 Unknown Rx traMADol [Ultram 50 MG tab] 50 mg PO Q6HR PRN #15 tablet 08/18/17 Unknown Rx ED Physical Exam - General Limitations: No Limitations General appearance: alert, in no apparent distress - Head Head exam: Present: atraumatic, normocephalic - Eye Eye exam: Present: normal appearance - ENT ENT exam: Present: mucous membranes moist - Neck Neck exam: Present: normal inspection - Respiratory Respiratory exam: Present: normal lung sounds bilaterally. Absent: respiratory distress - Cardiovascular Cardiovascular Exam: Present: regular rate, normal rhythm. Absent: systolic murmur, diastolic murmur, rubs, gallop - GI/Abdominal GI/Abdominal exam: Present: soft, normal bowel sounds - Rectal Rectal exam: Present: deferred - Extremities Exam Extremities exam: Present: normal inspection - Back Exam Back exam: Present: normal inspection - Neurological Exam Neurological exam: Present: alert, oriented X3 - Psychiatric Psychiatric exam: Present: normal affect, normal mood - Skin Skin exam: Present: warm, dry, intact, normal color. Absent: rash ED Course Vital Signs 08/18/17 08/18/17 08/18/17 15:22 16:44 19:26 Temperature 97.6 F Pulse Rate 52 L 50 L Respiratory 20 18 17 Rate Blood Pressure 115/52 113/64 [Left] O2 Sat by Pulse 99 Oximetry ED Medical Decision Making - Lab Data Result diagrams: 08/18/17 15:49 08/18/17 15:49 Labs 08/18/17 08/18/17 15:49 15:49 WBC 20.0 H RBC 5.08 H Hgb 15.4 H Hct 46.7 H MCV 92 MCH 30 MCHC 33 RDW 13.2 Plt Count 252 Add Manual Diff Complete Total Counted 100 Seg Neuts % (Manual) 88.0 H Band Neutrophils % 0 Lymphocytes % (Manual) 6.0 L Reactive Lymphs % (Man) 0 Monocytes % (Manual) 4.0 Eosinophils % (Manual) 1.0 Basophils % (Manual) 0 Metamyelocytes % 0 Myelocytes % 1.0 Promyelocytes % 0 Blast Cells % 0 Nucleated RBC % Not Reportable Seg Neutrophils # Man 17.6 H Band Neutrophils # 0.0 Lymphocytes # (Manual) 1.2 Abs React Lymphs (Man) 0.0 Monocytes # (Manual) 0.8 Eosinophils # (Manual) 0.2 Basophils # (Manual) 0.0 Metamyelocytes # 0.0 Myelocytes # 0.2 Promyelocytes # 0.0 Blast Cells # 0.0 WBC Morphology Not Reportable Hypersegmented Neuts Not Reportable Hyposegmented Neuts Not Reportable Hypogranular Neuts Not Reportable Smudge Cells Not Reportable Toxic Granulation Not Reportable Toxic Vacuolation Not Reportable Dohle Bodies Not Reportable Pelger-Huet Anomaly Not Reportable Hal Rods Not Reportable Platelet Estimate Appears normal Clumped Platelets Not Reportable Plt Clumps, EDTA Not Reportable Large Platelets Not Reportable Giant Platelets Not Reportable Platelet Satelliting Not Reportable Plt Morphology Comment Not Reportable RBC Morphology Not Reportable Dimorphic RBCs Not Reportable Polychromasia Not Reportable Hypochromasia Not Reportable Poikilocytosis Few Anisocytosis Few Microcytosis Not Reportable Macrocytosis Not Reportable Spherocytes Not Reportable Pappenheimer Bodies Not Reportable Sickle Cells Not Reportable Target Cells Not Reportable Tear Drop Cells Not Reportable Ovalocytes Not Reportable Helmet Cells Not Reportable [place] Bodies Not Reportable [place] Rings Not Reportable [place] Cells Not Reportable Bite Cells Not Reportable Crenated Cell Not Reportable Elliptocytes Not Reportable Acanthocytes (Spur) Not Reportable Rouleaux Not Reportable Hemoglobin C Crystals Not Reportable Schistocytes Not Reportable Malaria parasites Not Reportable Gregorio Bodies Not Reportable Hem Pathologist Commnt No Potassium 3.7 Chloride 96.4 L Carbon Dioxide 30 Anion Gap 17 BUN 15 Creatinine 0.8 Estimated GFR > 60 BUN/Creatinine Ratio 19 Glucose 105 H Calcium 9.8 Total Bilirubin 0.80 AST 15 ALT 39 Alkaline Phosphatase 58 Total Protein 6.7 Albumin 3.6 L Albumin/Globulin Ratio 1.2 Lipase 19 - Radiology Data Radiology results: report reviewed, image reviewed CT abdomen shows some N Qureshi. Mucosal thickening in the gastric antrum and the first and second portion of duodenum. Stomach as large a fluid filled and mildly distended which may reflect gastritis or duodenitis. Patient also has patchy ground opacities in the lung bases. Patient was recently extubated in the ICU 6 days ago and has been on steroids since then which explains his leukocytosis. Chest x-ray: Shows no acute cardiopulmonary disease - Medical Decision Making Chief medical diagnosis: GERD Differential diagnosis: Pancreatitis, appendicitis, cholelithiasis, peptic peptic ulcer CBC, CMP, IV fluids, IV morphine, IV Zofran, urinalysis, lipase and CT scan CT scan shows thickened wall of the gastric antrum which reflects gastritis/ duodenitis. I will send patient home with Pepcid patient's feeling better and he's been able to tolerate oral medication. Critical care attestation.: If time is entered above; I have spent that time in minutes in the direct care of this critically ill patient, excluding procedure time. ED Disposition Clinical Impression: Gastritis and duodenitis, Epigastric abdominal pain Nausea and vomiting Qualifiers: Vomiting type: unspecified Vomiting Intractability: non-intractable Qualified Code(s): R11.2 - Nausea with vomiting, unspecified Disposition: DC-01 TO HOME OR SELFCARE Is pt being admited?: No Does the pt Need Aspirin: No Condition: Stable Instructions: Gastritis (ED), Diet for Ulcers and Gastritis (ED), Helicobacter Pylori (ED) Prescriptions: Famotidine [Pepcid] 20 mg PO BID #30 tablet traMADol [Ultram 50 MG tab] 50 mg PO Q6HR PRN #15 tablet PRN Reason: Pain Referrals: LOPEZ LYNN MD [Staff Physician] - 3-5 Days
--- NOTE | 2017-08-18 18:17 | Cat Scan Report ---
FINAL REPORT EXAM: CT ABDOMEN PELVIS W CON HISTORY: generalized abd pain TECHNIQUE: CT abdomen and pelvis with intravenous contrast PRIORS: None. FINDINGS: Patchy ground-glass opacities are identified at both lung bases No focal abnormality identified within the liver parenchyma. The spleen demonstrates normal size and attenuation. There is some edematous appearing mucosal thickening gastric antrum and 1st 2nd portion of the duodenum. Stomach is largely fluid-filled and mildly distended. No pancreatic abnormalities seen. The kidneys demonstrate symmetric contrast enhancement. No evidence of hydronephrosis. The adrenal glands are unremarkable Abdominal aorta is normal in caliber. No pathologically enlarged lymph nodes are identified. No signs of free fluid or free air No evidence of small bowel dilatation. Colon is nondistended. No pericolonic inflammatory change. Urinary bladder is unremarkable. IMPRESSION: Patchy ground-glass opacities in the lung bases. Differential considerations are broad and include edema, pneumonitis, or infectious etiologies including mycobacterial or fungal. Thickened wall of the gastric antrum and 1st 2nd portion of the duodenum. May reflect gastritis/duodenitis
[2017-08-18] MEDS ORDERED: MORPHINE ONE (18:24)
[2017-08-18] MEDS ORDERED: LIDOCAINE VISCOUS 2% PO ONE (18:28)
[2017-08-18] MEDS ORDERED: ALUM-MAG HYDROX-SIMETH 200-200-20MG/5ML PO ONE (18:29)
[2017-08-18] MEDS ORDERED: NORCO 10/325 PO ONE (18:54)
[2017-08-18 20:38] VITALS: BP 121/66
--- NOTE | 2017-08-19 10:03 | XRay Report ---
CHEST TWO VIEWS: 08/18/17 18:40 CLINICAL: Chest pain. COMPARISON: 08/15/17 FINDINGS: Normal cardiac silhouette. The central pulmonary arteries are relatively large but otherwise normal pulmonary vasculature.Small bilateral calcified hilar granulomata. The lungs are mildly hyperinflated and clear.The bones and soft tissues are unremarkable. IMPRESSION: Mild COPD and old granulomatous disease. No cardiac decompensation.
== END 2017-08-18 20:38 | disposition home or self-care (01) ==
LOC: ED 15:05
DX: K29.70 Gastritis, unspecified, without bleeding (principal); K29.80 Duodenitis without bleeding
CPT/HCPCS: 36415; 71020; 74177; 80053; 83690; 85007; 85025; 96361; 96374; 96375; 99285; J2270; J2405; J7030; Q9967